=== PATIENT | male | born 1930 | race Caucasian/White ===

== ENCOUNTER 2016-10-26 10:20 | Outpatient (CLI) | payer MEDICARE, BC | END 2016-10-26 10:21 | disposition home or self-care (01) | DX: I10 Essential (primary) hypertension (principal); E78.5 Hyperlipidemia, unspecified; E11.9 Type 2 diabetes mellitus without complications; R53.83 Other fatigue; F03.90 Unspecified dementia, unspecified severity, without behavioral disturbance, psychotic disturbance, mood disturbance, and anxiety; R32 Unspecified urinary incontinence ==

== ENCOUNTER 2017-01-12 08:00 | Outpatient (CLI) | payer MEDICARE, BC | END 2017-01-12 23:59 | DX: E29.8 Other testicular dysfunction (principal) ==

== ENCOUNTER 2017-01-22 10:58 | Outpatient (CLI) | payer MEDICARE, BC | END 2017-01-22 10:59 | disposition home or self-care (01) | DX: M25.561 Pain in right knee (principal); M25.461 Effusion, right knee ==

== ENCOUNTER 2017-10-02 08:00 | Outpatient (CLI) | payer MEDICARE, BC | END 2017-10-02 08:01 | disposition home or self-care (01) | LOC: LAB.WCP 08:00 | PROVIDERS: ATTEND Family Medicine | DX: E29.8 Other testicular dysfunction (principal) | CPT/HCPCS: 36415; 84403 ==

== ENCOUNTER 2017-10-09 23:11 | Outpatient (CLI) | payer MEDICARE, BC | END 2017-10-09 23:12 | disposition EMS.NT | LOC: EMS 23:11 | PROVIDERS: ATTEND Surgery | DX: S00.81XA Abrasion of other part of head, initial encounter (principal); W18.39XA Other fall on same level, initial encounter; Y92.009 Unspecified place in unspecified non-institutional (private) residence as the place of occurrence of the external cause ==

== ENCOUNTER 2018-09-01 06:55 | Outpatient (CLI) | payer MEDICARE, BC | END 2018-09-01 06:56 | disposition EMS.NT | LOC: EMS 06:55 | PROVIDERS: ATTEND Surgery | DX: R53.1 Weakness (principal) ==

== ENCOUNTER 2018-09-29 11:35 | Outpatient (CLI) | payer MEDICARE, BC | END 2018-09-29 11:36 | disposition EMS.NT | LOC: EMS 11:35 | PROVIDERS: ATTEND Surgery | DX: Z03.89 Encounter for observation for other suspected diseases and conditions ruled out (principal) ==

== ENCOUNTER 2018-10-18 10:30 | Outpatient (CLI) | payer MEDICARE, BC | END 2018-10-18 10:31 | disposition home or self-care (01) | LOC: LAB.WCP 10:30 | PROVIDERS: ATTEND Family Medicine | DX: E29.1 Testicular hypofunction (principal) | CPT/HCPCS: 36415; 84403 ==

== ENCOUNTER 2018-11-25 08:49 | Outpatient (CLI) | payer MEDICARE, BC | END 2018-11-25 08:50 | disposition critical access hospital (66) | LOC: EMS 08:49 | PROVIDERS: ATTEND Surgery | DX: M25.552 Pain in left hip (principal); R26.2 Difficulty in walking, not elsewhere classified; R53.1 Weakness; M79.605 Pain in left leg; W19.XXXA Unspecified fall, initial encounter | CPT/HCPCS: A0425; A0429 ==

== ENCOUNTER 2018-11-25 09:07 | Emergency (ER) | payer MEDICARE, BC ==
--- NOTE | 2018-11-25 09:14 | ED Physician Documentation ---
History of Present Illness - Stated complaint Stated Complaint: HIP PAIN - History obtained from History obtained from: Patient, Family, EMS - Additonal information Additional information: Patient is an 88-year-old male presenting via ambulance with concern for left hip and left leg pain. History is obtained by EMS, , patient. Patient normally is only ambulatory with assistance of walker. EMS reports that they have been called to the house many times before to provide lift assist. and patient report the patient has had recurrent falls, most recently several days ago when he struck his left hip and left leg. Patient denies striking of head, loss of consciousness, or other injury. Patient also denies symptoms such as headache, vision changes, neck pain, back pain, rib pain, abdominal pain, respiratory issues, or other complaints. There are no particular improving factors to his symptoms, but movement seems to worsen them. Review of Systems Ten Systems: 10 systems reviewed and negative Musculoskeletal: reports: Extremity pain PD PAST MEDICAL HISTORY - Past Medical History Musculoskeletal: Osteoarthritis, Gout - Past Surgical History Cardiovascular: CABG - Present Medications Home Medications: Ambulatory Orders Medication Instructions Recorded Confirmed Ascorbate Calcium [Vitamin C] 500 mg PO DAILY 03/02/14 05/20/18 Atorvastatin Calcium [Lipitor] 40 mg PO DAILY 03/02/14 11/25/18 Cyanocobalamin (Vitamin B-12) 500 mcg PO DAILY 03/02/14 11/25/18 [Vitamin B-12] Multivitamin [Multivitamins] 1 each PO DAILY 03/02/14 11/25/18 RX: Allopurinol 300 mg PO DAILY 03/02/14 11/25/18 glipiZIDE [Glucotrol] 2.5 mg PO DAILY 03/02/14 11/25/18 raNITIdine [Zantac] 150 mg PO BID 03/02/14 11/25/18 Aspirin [Adult Low Dose Aspirin EC] 81 mg PO DAILY 02/22/15 11/25/18 RX: Escitalopram [Lexapro] 10 mg PO DAILY 02/28/16 11/25/18 RX: Testosterone Cypionate 200 mg IM Q14D 04/02/17 11/25/18 Cholecalciferol (Vitamin D3) 2,000 unit PO DAILY 05/21/17 11/25/18 [Vitamin D] RX: Donepezil HCl 10 mg PO DAILY 04/08/18 05/20/18 - Allergies Allergies/Adverse Reactions: Allergies Allergy/AdvReac Type Severity Reaction Status Date / Time prednisone Allergy Hallucinati Verified 11/25/18 11:11 ons narcotics AdvReac Hallucinati Uncoded 06/04/13 09:46 ons PD ED PE NORMAL - General General: No acute distress, Well developed/nourished - HEENT HEENT: Atraumatic, PERRL, EOMI, Moist mucous membranes, Dentition benign - Neck Neck: Supple, no meningeal sign, No bony TTP - Cardiac Cardiac: RRR, No murmur - Respiratory Respiratory: No respiratory distress, Clear bilaterally - Abdomen Abdomen: Soft, Non tender, Non distended, Other (Mild left hip pain) - Derm Derm: Normal color, Warm and dry, No rash, Other (No ecchymosis, abrasions, lacerations noted) - Extremities Extremities: No deformity, Other (No specific bony tenderness noted. No obvious change in range of motion from what appears to be patient's baseline.) - Neuro Neuro: No motor deficit, No sensory deficit (No gross motor or sensory deficits from patient's baseline noted) Results - Vitals Vitals: Vital Signs - 24 hr 11/25/18 11/25/18 11/25/18 09:06 09:14 11:45 Temperature 36.6 C 36.5 C Heart Rate 64 68 68 Respiratory 14 18 16 Rate Blood Pressure 111/59 L 115/62 115/64 O2 Saturation 98 92 100 11/25/18 13:15 Temperature Heart Rate 62 Respiratory 18 Rate Blood Pressure 115/75 O2 Saturation 96 Oxygen O2 Source Room air PD MEDICAL DECISION MAKING - ED course Complexity details: re-evaluated patient, considered differential, d/w patient, d/w family ED course: Patient arrives with complaint of left hip and leg pain after fall several days ago. Unfortunately, it appears that patient has limited mobility at baseline and often uses a walker, if not all the time and has had recurrent falls. Lower suspicion for intracranial injury, facial or head fractures, neck or back injury, rib fractures, intra-abdominal injury, but considered. We will plan to obtain chest x-ray to further evaluate for possible rib injury. Will focus more so on pelvis and left leg given patient's complaints and 's concerns. Patient was comfortable and did not require medications. Did not feel he required medical workup has have low suspicion for underlying pathology or sys temic illness and feel that his falls are related to his baseline mobility issues and otherwise mechanical.Symptoms all return unremarkable. Discussed results and recommendations with who requested additional information on assistance at home, physical therapy, exercises and social work consulted. Otherwise, provided strict return precautions, supportive care suggestions, and appropriate follow-up. voiced understanding and is comfortable with discharge plan. Departure - Departure Disposition: 01 Home, Self Care Clinical Impression: Fall Qualifiers: Encounter type: initial encounter Qualified Code(s): W19.XXXA - Unspecified fall, initial encounter Condition: Good Instructions: Falls Prevent Home Follow-Up: Layla Levi MD [Primary Care Provider] - Within 3 Days Comments: Please continue all home medications as previously instructed. Please have clotted use assistive devices such as walker. Recommend speaking with your primary care physician later today or tomorrow to discuss home health options, possible physical therapy, or other interventions to help at home. Please return to ED sooner if clot experiences another fall or has other complaints, as well as if you have any other concerns. Discharge Date/Time: 11/25/18 15:15
--- NOTE | 2018-11-25 10:45 | XRAY Report ---
Reason: fall from ground, left hip pain Procedure Date: 11/25/2018 Accession Number: [id number] / [id number] Procedure: XR - Hip w/Pelvis 2-3V LT CPT Code: FULL RESULT: EXAM: LEFT HIP RADIOGRAPHY EXAM DATE: 11/25/2018 10:13 AM. CLINICAL HISTORY: Fall from ground, left hip pain. COMPARISON: None. TECHNIQUE: 2 views. FINDINGS: Bones: No appreciable acute fracture. No bone lesion. Joints: Mild degenerative marginal osteophyte of the femoral heads commensurate with age. Mild degenerative changes of the SI joints and lower lumbar facets. Soft Tissues: Normal. No soft tissue swelling. IMPRESSION: No acute fracture appreciated. RADIA
--- NOTE | 2018-11-25 10:56 | XRAY Report ---
Reason: chest pain Procedure Date: 11/25/2018 Accession Number: [id number] / [id number] Procedure: XR - Chest 1 View X-Ray CPT Code: 09691 FULL RESULT: EXAM: CHEST RADIOGRAPHY EXAM DATE: 11/25/2018 10:13 AM. CLINICAL HISTORY: Chest pain. COMPARISON: None. TECHNIQUE: 1 view. FINDINGS: Lungs/Pleura: No focal opacities evident. No pleural effusion. No pneumothorax. Mediastinum: Within exam limitations, the cardiomediastinal contour is normal. Other: No appreciable displaced rib fractures. There is fracture of 1 of 7 median sternotomy wires. There are clips in the left upper quadrant from prior procedure. IMPRESSION: No radiographic evidence of acute cardiopulmonary disease. RADIA
--- NOTE | 2018-11-25 12:27 | XRAY Report ---
Reason: ground level fall Procedure Date: 11/25/2018 Accession Number: [id number] / [id number] Procedure: XR - Lumbar Spine 2 View CPT Code: FULL RESULT: EXAM: LUMBOSACRAL SPINE RADIOGRAPHY EXAM DATE: 11/25/2018 10:13 AM. CLINICAL HISTORY: Ground level fall. Low back pain. COMPARISONS: None. TECHNIQUE: 3 views. FINDINGS: Alignment: Normal. No spondylolisthesis or scoliosis. Bones: Five yeq-fkw-qyhaqcy lumbar vertebral bodies are present. No fractures or bone lesions. Disks: The disk heights are maintained. There is a large right anterolateral bridging osteophyte at L2-L3. Moderate to large anterior nonbridging osteophytes noted at L3-L4 and L4-L5. Facets: Bilateral facet arthrosis at L4-L5 and L5-S1. Sacroiliac Joints: Unremarkable. Soft Tissues: Normal. The visualized bowel gas pattern is normal. IMPRESSION: Degenerative disk changes commensurate with age. No appreciable acute fracture. RADIA
[2018-11-25 13:15] VITALS: BP 115/75
== END 2018-11-25 15:15 | disposition home or self-care (01) ==
LOC: ED 09:07
DX: M25.552 Pain in left hip (principal); M79.605 Pain in left leg; W19.XXXA Unspecified fall, initial encounter; Z91.81 History of falling
CPT/HCPCS: 71045; 72100; 99283

== ENCOUNTER 2018-11-26 09:58 | Outpatient (CLI) | payer MEDICARE, BC | END 2018-11-26 09:59 | disposition critical access hospital (66) | LOC: EMS 09:58 | PROVIDERS: ATTEND Surgery | DX: S79.912A Unspecified injury of left hip, initial encounter (principal); W18.30XA Fall on same level, unspecified, initial encounter; Y92.002 Bathroom of unspecified non-institutional (private) residence as the place of occurrence of the external cause | CPT/HCPCS: A0425; A0429 ==

== ENCOUNTER 2018-11-26 10:02 | Emergency (ER) | payer MEDICARE, BC ==
--- NOTE | 2018-11-26 10:23 | ED Physician Documentation ---
History of Present Illness - Stated complaint Stated Complaint: GLF - Chief complaint Chief Complaint: Trauma Ext - History obtained from History obtained from: Patient, Family - Additonal information Additional information: Patient is an 88-year-old male with history of coronary artery disease, osteoarthritis and is otherwise ambulatory with a walker presenting with his with request for further evaluation after being seen in this ED yesterday. Please refer to my previous note from yesterday dated 11/25/18 for further evaluation information and additional details. Briefly, patient has been experiencing recurrent falls and requiring EMS for lift assist regularly. and patient had reported a fall several days prior to yesterday's evaluation and were concerned with left hip and left femur pain. Plain films obtained of chest, pelvis, and lumbar spine, which returned unremarkable. Patient and had denied symptoms that would indicate new systemic illness or other complications including intracranial injury, other spinal injury, intra- abdominal injury, as well as other pathology such as pneumonia, cardiac disease, flu, etc. Patient's notes that he is still having difficulty with ambulation at this time, but no new injuries or other complaints since yesterday's visit. Review of Systems Constitutional: denies: Fever Eyes: denies: Reviewed and negative Ears: denies: Reviewed and negative Nose: denies: Reviewed and negative Throat: denies: Reviewed and negative Cardiac: denies: Chest pain / pressure Respiratory: denies: Dyspnea, Cough GI: denies: Abdominal Pain, Vomiting, Diarrhea : denies: Dysuria Musculoskeletal: reports: Extremity pain Neurologic: reports: Generalized weakness PD PAST MEDICAL HISTORY - Past Medical History Cardiovascular: IA Musculoskeletal: Osteoarthritis, Gout - Past Surgical History Cardiovascular: CABG - Present Medications Home Medications: Ambulatory Orders Medication Instructions Recorded Confirmed Allopurinol 300 mg PO DAILY 03/02/14 11/25/18 Ascorbate Calcium [Vitamin C] 500 mg PO DAILY 03/02/14 05/20/18 Atorvastatin Calcium [Lipitor] 40 mg PO DAILY 03/02/14 11/25/18 Cyanocobalamin (Vitamin B-12) 500 mcg PO DAILY 03/02/14 11/25/18 [Vitamin B-12] Multivitamin [Multivitamins] 1 each PO DAILY 03/02/14 11/25/18 glipiZIDE [Glucotrol] 2.5 mg PO DAILY 03/02/14 11/25/18 raNITIdine [Zantac] 150 mg PO BID 03/02/14 11/25/18 Aspirin [Adult Low Dose Aspirin EC] 81 mg PO DAILY 02/22/15 11/25/18 Escitalopram [Lexapro] 10 mg PO DAILY 02/28/16 11/25/18 Testosterone Cypionate 200 mg IM Q14D 04/02/17 11/25/18 Cholecalciferol (Vitamin D3) 2,000 unit PO DAILY 05/21/17 11/25/18 [Vitamin D] Donepezil HCl 10 mg PO DAILY 04/08/18 05/20/18 - Allergies Allergies/Adverse Reactions: Allergies Allergy/AdvReac Type Severity Reaction Status Date / Time amoxicillin [From Augmentin] Allergy Hallucinati Verified 11/26/18 10:25 ons azithromycin Allergy Hives Verified 11/26/18 10:25 clavulanic acid Allergy Hallucinati Verified 11/26/18 10:25 [From Augmentin] ons gentamicin Allergy Rash Verified 11/26/18 10:25 morphine Allergy Hallucinati Verified 11/26/18 10:25 ons prednisone Allergy Hallucinati Verified 11/26/18 10:21 ons narcotics AdvReac Hallucinati Uncoded 06/04/13 09:46 ons - Social History Does the pt smoke?: No Smoking Status: Never smoker Does the pt drink ETOH?: No Does the pt have substance abuse?: No - Immunizations Immunizations are current?: Yes PD ED PE NORMAL - General General: No acute distress, Well developed/nourished, Other (Patient is at baseline mentation and otherwise humerus, talkative, and interactive with exam. No acute distress resting comfortably in bed.) - HEENT HEENT: Atraumatic, PERRL, EOMI, Moist mucous membranes, Other (Gross visual acui ty intact. No nystagmus.) - Neck Neck: Supple, no meningeal sign, No bony TTP - Cardiac Cardiac: RRR, No murmur - Respiratory Respiratory: No respiratory distress, Clear bilaterally - Abdomen Abdomen: Normal bowel sounds, Soft, Non tender, Non distended - Derm Derm: Normal color, Warm and dry, No rash - Extremities Extremities: No deformity, No tenderness to palpate - Neuro Neuro: No motor deficit, No sensory deficit, Other (No gross motor or sensory deficits noted. At baseline mentation per ) - Psych Psych: Normal mood, Normal affect Results - Vitals Vitals: Vital Signs - 24 hr 11/26/18 11/26/18 10:12 13:07 Temperature 36.1 C L Heart Rate 63 62 Respiratory 16 19 Rate Blood Pressure 142/62 H 140/66 H O2 Saturation 97 97 Oxygen O2 Source Room air - EKG (time done) 1032 Rhythm: NSR Intervals: RBBB, LBBB Ischemia: Non specific changes - Labs Labs: Laboratory Tests 11/26/18 11/26/18 11/26/18 10:39 10:39 10:39 WBC 6.4 RBC 3.17 L Hgb 11.5 L Hct 34.0 L MCV 107.3 H MCH 36.4 H MCHC 33.9 RDW 16.2 H Plt Count 210 MPV 8.0 Neut # (Auto) 2.8 Lymph # (Auto) 2.2 [place] # (Auto) 0.9 Eos # (Auto) 0.5 Baso # (Auto) 0.0 Absolute Nucleated RBC 0.00 Nucleated RBC % 0.0 Sodium 138 Potassium 4.1 Chloride 107 Carbon Dioxide 26 Anion Gap 5.0 L BUN 30 H Creatinine 1.2 Estimated GFR (MDRD) 57 L Glucose 110 H Calcium 8.4 L Total Bilirubin 0.8 AST 43 H ALT 25 Alkaline Phosphatase 56 Troponin I < 0.04 Total Protein 6.7 Albumin 3.2 Globulin 3.5 Albumin/Globulin Ratio 0.9 L Lipase 40 Urine Color Urine Clarity Urine pH Ur Specific [place] Urine Protein Urine Glucose (UA) Urine Ketones Urine Occult Blood Urine Nitrite Urine Bilirubin Urine Urobilinogen Ur Leukocyte Esterase Ur Microscopic Review Urine Culture Comments Influenza A (Rapid) Influenza B (Rapid) 11/26/18 11/26/18 11:55 13:22 WBC RBC Hgb Hct MCV MCH MCHC RDW Plt Count MPV Neut # (Auto) Lymph # (Auto) [place] # (Auto) Eos # (Auto) Baso # (Auto) Absolute Nucleated RBC Nucleated RBC % Sodium Potassium Chloride Carbon Dioxide Anion Gap BUN Creatinine Estimated GFR (MDRD) Glucose Calcium Total Bilirubin AST ALT Alkaline Phosphatase Troponin I Total Protein Albumin Globulin Albumin/Globulin Ratio Lipase Urine Color YELLOW Urine Clarity CLEAR Urine pH 5.5 Ur Specific [place] 1.025 Urine Protein TRACE Urine Glucose (UA) NEGATIVE Urine Ketones NEGATIVE Urine Occult Blood NEGATIVE Urine Nitrite NEGATIVE Urine Bilirubin NEGATIVE Urine Urobilinogen 0.2 (NORMAL) Ur Leukocyte Esterase NEGATIVE Ur Microscopic Review NOT INDICATED Urine Culture Comments NOT INDICATED Influenza A (Rapid) Negative Influenza B (Rapid) Negative PD MEDICAL DECISION MAKING - ED course Complexity details: reviewed old records, reviewed results, re-evaluated patient, considered differential, d/w patient, d/w PMD ED course: Patient presenting with his with concern for difficulty with ambulation. Please refer to my note from yesterday dated 11/25/18 for further details. Overall, patient has been experiencing worsening ambulation and recurrent falls for some time with a recent fall several days ago for which she was evaluated yesterday with negative plain films. Patient and deny other injury since discharge or new symptoms that would indicate new IA, stroke, pneumonia, UTI, or other systemic illness, although considered. Patient's primary care physician instructed to bring patient to the emergency room for additional evaluation. At this time, do not find evidence of new trauma, neurological deficit, or infection on exam. Given primary care is concerned, offered further evaluation with blood work, urine testing, and pain scanning to , although have no targeted source at this time. agreeable. Primary care physician did later contact the ED and agreed with workup.All imaging returned unremarkable for new fracture or acute pathology. EKG and troponin negative. Screening lab work also do not show evidence of leukocytosis, significant anemia, major electrolyte abnormality or other concerns. Urinalysis also unremarkable. Influenza swab negative. Updated and patient. Social work consulted, who spoke with family, as well as primary care physician. Believe that plan is in place for long-term assistance or care. requesting discharge home. Departure - Departure Disposition: 01 Home, Self Care Clinical Impression: Decreased ambulation status Condition: Good Follow-Up: Layla Levi MD [Primary Care Provider] - Within 3 Days Comments: Please continue all home medications as previously instructed. Please follow-up with your primary care physician tomorrow and return to ED sooner if he experiences another fall, worsening symptoms, or have other concerns.
[2018-11-26 10:48] LABS: BASOPHILS % (AUTO) 0.7 %; EOSINOPHILS # (AUTO) 0.5 10^3/uL (0.0-0.7); EOSINOPHILS % (AUTO) 8.5 %; HGB - HEMOGLOBIN 11.5 g/dL (14.0-18.0); LYMPHOCYTES # (AUTO) 2.2 10^3/uL (1.5-3.5); LYMPHOCYTES % (AUTO) 34.1 %; MEAN CORPUSCULAR HEMOGLOBIN 36.4 pg (27.0-31.0); MEAN CORPUSCULAR HGB CONC 33.9 g/dL (32.0-36.0); MEAN CORPUSCULAR VOLUME 107.3 fL (80.0-94.0); MONOCYTES # (AUTO) 0.9 10^3/uL (0.0-1.0); NEUTROPHILS # (AUTO) 2.8 10^3/uL (1.5-6.6); NEUTROPHILS % (AUTO) 42.7 %; PLT - PLATELET COUNT 210 10^3/uL (130-450); RED BLOOD COUNT 3.17 10^6/uL (4.70-6.10); RED CELL DISTRIBUTION WIDTH 16.2 % (12.0-15.0); WHITE BLOOD COUNT 6.4 x10^3/uL (4.8-10.8)
[2018-11-26 11:00] LABS: ALBUMIN 3.2 g/dL (3.2-5.5); ALBUMIN/GLOBULIN RATIO 0.9 (1.0-2.2); BILIRUBIN,TOTAL 0.8 mg/dL (0.2-1.0); CALCIUM 8.4 mg/dL (8.5-10.3); CREATININE 1.2 mg/dL (0.6-1.2); TOTAL PROTEIN 6.7 g/dL (6.7-8.2)
--- NOTE | 2018-11-26 12:19 | CT Report ---
Reason: weak, difficulty walking Procedure Date: 11/26/2018 Accession Number: [id number] / [id number] Procedure: CT - HEAD WO CPT Code: FULL RESULT: EXAM: CT HEAD EXAM DATE: 11/26/2018 11:45 AM. CLINICAL HISTORY: Weak, difficulty walking. COMPARISON: None. TECHNIQUE: Multiaxial CT images were obtained from the foramen magnum to the vertex. Reformats: Sagittal and coronal. IV contrast: None. In accordance with CT protocol optimization, one or more of the following dose reduction techniques were utilized for this exam: automated exposure control, adjustment of mA and/or KV based on patient size, or use of iterative reconstructive technique. FINDINGS: Parenchyma: Parenchymal volume loss with periventricular regions of low attenuation. 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 No evidence of an acute vascular insult or acute parenchymal hemorrhage. No midline shift. No mass-effect. Extraaxial Spaces: Extra-axial spaces are prominent. No subdural or epidural collections identified. Ventricles: Ventricles are enlarged although slightly asymmetric with the right larger than the left. Sinuses and Orbits: Paranasal sinuses are clear. Trace mastoid effusions are present. Bones: No evidence of fracture or calvarial defect. Other: Changes are seen from bilateral lens surgery. Vascular calcifications are noted. IMPRESSION: 1. No acute intracranial abnormality is identified. 2. Parenchymal volume loss and chronic white matter changes. RADIA
--- NOTE | 2018-11-26 12:24 | CT Report ---
Reason: weak, difficulty walking Procedure Date: 11/26/2018 Accession Number: [id number] / [id number] Procedure: CT - LUMBAR SPINE WO CPT Code: FULL RESULT: EXAM: CT LUMBAR SPINE WITHOUT CONTRAST EXAM DATE: 11/26/2018 11:45 AM. CLINICAL HISTORY: Weak, difficulty walking. COMPARISONS: 11/25/2018. 08/08/2018. 11/26/2017. TECHNIQUE: Thin-section axial images were acquired of the lumbar spine from T12 to S1 without contrast. Post-processing: Coronal and sagittal reformats. Other: None. In accordance with CT protocol optimization, one or more of the following dose reduction techniques were utilized for this exam: automated exposure control, adjustment of mA and/or KV based on patient size, or use of iterative reconstructive technique. FINDINGS: Alignment: Slight levoscoliosis of the lower lumbar spine. No spondylolisthesis. Bones: Five meb-tfs-rywvdvz lumbar vertebral bodies are present. No acute fracture or bony lesion. Prominent degenerative osteophyte formation most extensively extending anteriorly at L2-L3. Disk Levels/Facets: T12-L1: Disk space narrowing. Osteophyte formation. Facet arthropathy. L1-L2: Disk space narrowing. Osteophyte formation. Mild circumferential disk protrusion. Facet arthropathy. L2-L3: Mild disk space narrowing. Osteophyte formation. Facet arthropathy. Circumferential disk protrusion. Mild to moderate central canal narrowing. L3-L4: Disk space narrowing. Osteophyte formation. Circumferential disk protrusion. Severe central canal narrowing. Facet arthropathy. Moderate bilateral neural foraminal narrowing. L4-L5: Disk space narrowing. Osteophyte formation. Severe central canal narrowing. Facet arthropathy. Mild to moderate bilateral neural foraminal narrowing. L5-S1: Disk space narrowing. Circumferential disk protrusion. Facet arthropathy. Mild bilateral neural foraminal narrowing. Musculature: Normal. No fatty atrophy. Other: Vascular calcifications. Mass-effect upon the IVC by the protuberant anterior osteophytes particularly at L2-L3 and L4-L5. Diverticuli are seen in the visualized colon distally. Mildly complex exophytic left renal low-attenuation lesion is seen measuring 20 mm with high density focus possibly a calcification. There are bilateral peripelvic cysts. IMPRESSION: 1. No acute lumbar spine abnormalities are identified. 2. Multilevel intervertebral disk degenerative changes of the lumbar spine. 3. Severe central canal narrowing at L3-L4 and L4-L5. 4. Exophytic 20 mm left renal low-attenuation lesion with a high density focus possibly a calcification similar in appearance compared to the CT from 11/26/2017. RADIA
--- NOTE | 2018-11-26 12:33 | CT Report ---
Reason: weak, difficulty walking Procedure Date: 11/26/2018 Accession Number: [id number] / [id number] Procedure: CT - THORACIC SPINE WO CPT Code: FULL RESULT: EXAM: CT THORACIC SPINE WITHOUT CONTRAST EXAM DATE: 11/26/2018 11:45 AM. CLINICAL HISTORY: Weak, difficulty walking. COMPARISONS: CHEST W/ 08/08/2018 11:[address] abdomen pelvis from 11/26/2017. TECHNIQUE: Thin-section axial images were acquired of the thoracic spine from C7 to L1 without contrast. Post-processing: Coronal and sagittal reformats. Other: None. In accordance with CT protocol optimization, one or more of the following dose reduction techniques were utilized for this exam: automated exposure control, adjustment of mA and/or KV based on patient size, or use of iterative reconstructive technique. FINDINGS: Alignment: Mild dextroscoliosis of the midthoracic spine. No spondylolisthesis. There are numerous bridging osteophytes. Bones: No fracture or bone lesion. Flowing bridging osteophytes are noted throughout the thoracic spine. Disk Levels/Facets: Multilevel mild disk space narrowing throughout the thoracic spine is seen large in the midthoracic spine although the intervertebral disk spaces are largely spared with extensive bridging osteophytes. 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 Thoracic facet arthropathy noted. Musculature: Normal. No fatty atrophy. Other: Linear bibasilar scar/atelectasis. Some motion limits detail of the visualized lung parenchyma. In the left upper lobe is a lobular nodule measuring 6 mm which may be partially seen compared to the chest CT from 08/08/2018 with an additional slightly more cephalad nodule measuring 6 mm also unchanged. No clear evidence for endobronchial obstruction. Heart size is unchanged. Coronary calcified and thoracic aortic calcified plaque. Visualized thyroid gland is unremarkable. Low-attenuation again seen in the medial right lobe of the liver. Medial exophytic 20 mm left renal lesion with a high density focus possibly calcification is unchanged. Partly visualized low-attenuation lesions in the right kidney the largest only visualized measuring 21 mm. Findings are unchanged. IMPRESSION: 1. No acute thoracic spine abnormalities are identified. 2. 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 3. Left lung nodules unchanged compared to the chest CT from 11/26/2017. RADIA
--- NOTE | 2018-11-26 12:39 | CT Report ---
Reason: weak, difficulty walking Procedure Date: 11/26/2018 Accession Number: [id number] / [id number] Procedure: CT - CERVICAL SPINE WO CPT Code: FULL RESULT: EXAM: CT CERVICAL SPINE WITHOUT CONTRAST DATE: 11/26/2018 11:45 AM. HISTORY: Weak, difficulty walking. COMPARISONS: CHEST W/ 08/08/2018 11:00 AM CHEST W/O 11/26/2017 2:37 PM. TECHNIQUE: Thin-section axial images were acquired of the cervical spine without contrast. Post-processing: Coronal and sagittal reformats. Other: None. In accordance with CT protocol optimization, one or more of the following dose reduction techniques were utilized for this exam: automated exposure control, adjustment of mA and/or KV based on patient size, or use of iterative reconstructive technique. FINDINGS: Alignment: Straightening of the normal cervical lordosis. Slight retrolisthesis of C4 on C5. Articular facets are normally aligned. Occipital condyles are normally aligned. Bones: Degenerative osteophyte formation. No acute fracture. No bony lesion. Interspace Levels/Facets: C1-C2: Degenerative changes of the anterior arch of C1 and the dens. C2-C3: Disk space narrowing. Osteophyte formation. Uncovertebral hypertrophy. Disk osteophyte complex. Facet arthropathy. Mild central canal narrowing. Mild right and severe left neural foraminal narrowing. C3-C4: Disk space narrowing. Osteophyte formation. Uncovertebral hypertrophy. Facet arthropathy. Severe right and moderate to severe left neural foraminal narrowing. C4-C5: Disk space narrowing. Osteophyte formation. Broad-based disk osteophyte complex. Facet arthropathy. Uncovertebral hypertrophy. Severe right and left neural foraminal narrowing. C5-C6: Disk space narrowing. Osteophyte formation. Uncovertebral hypertrophy. Broad-based disk osteophyte complex paired facet arthropathy. Mild central canal narrowing. Severe bilateral neural foraminal narrowing. C6-C7: Disk space narrowing. Osteophyte formation. Uncovertebral hypertrophy. Broad-based disk osteophyte complex. Mild to moderate central canal narrowing. Facet arthropathy. Severe bilateral neural foraminal narrowing. C7-T1: Mild disk space narrowing. Facet arthropathy. Musculature: Normal. No fatty atrophy. Other: The paravertebral and prevertebral soft tissues are unremarkable. Left apical lung nodule again seen measuring 4.5 mm, unchanged. Airways are clear. Vascular calcifications. No enlarged cervical lymph nodes. Skull base is unremarkable. IMPRESSION: 1. No acute cervical spine abnormalities identified. 2. Degenerative changes of the cervical spine. 3. Central canal narrowing at C5-C6 and C6-C7 greatest at C6-C7. 4. Left apical nodule measuring 4.5 mm without significant change compared to the chest CT from 11/26/2017. [facility]
[2018-11-26 13:28] LABS: BILIRUBIN,URINE NEGATIVE (NEGATIVE); GLUCOSE, URINE (UA) NEGATIVE (NEGATIVE); KETONES,URINE (UA) NEGATIVE (NEGATIVE); LEUKOCYTE ESTERASE, URINE NEGATIVE (NEGATIVE); NITRITE,URINE NEGATIVE (NEGATIVE); OCCULT BLOOD,URINE NEGATIVE (NEGATIVE); PH,URINE 5.5 PH (5.0-7.5); PROTEIN,URINE TRACE mg/dL (NEGATIVE); UROBILINOGEN,URINE 0.2 (NORMAL) E.U./dL (NORMAL)
[2018-11-26 13:29] LABS: CLARITY,URINE CLEAR (CLEAR)
[2018-11-26 17:07] VITALS: BP 133/71
== END 2018-11-26 17:10 | disposition home or self-care (01) ==
LOC: EDUNIT# → ED 10:02
DX: Z74.09 Other reduced mobility (principal); Z91.81 History of falling
CPT/HCPCS: 36415; 70450; 72125; 72128; 72131; 80053; 81001; 81003; 83690; 84484; 85025; 87086; 87275; 87276; 93005; 99283; 99284

== ENCOUNTER 2018-11-28 09:00 | Outpatient (CLI) | payer MEDICARE, BC ==
--- NOTE | 2018-11-28 21:40 | CONSULTATION NOTE ---
Palliative Care Consultation - Referral Referring Provider: Dr. Raina Levi Time of Visit: [id number] Referral setting: Home Referral Reason: Failure to thrive/acute left hip pain - Information Sources Records reviewed: Previous records reviewed History/Review of Systems obtained from: Patient, Family ( Daniela at visit) Exam limitations: Clinical condition (patient with moderate) - History of Present Illness Brief History of Present Illness: This is an 88-year-old gentleman I was asked to see urgently by his primary care provider, Dr. Levi. Patient had had an acute fall about 5 days ago, fell on his left side, and his pain had been progressively worsening. Went to the ED on 11/25, unfortunately x-rays did not show any signs or symptoms of acute fracture at that point in time. Patient returned home, but pain continued to acutely limit patient's ability to bear weight, be out of bed, or be attended to for ADLs. They returned back to the ED on 11/26, with further workup but only included CT scan of the lumbar spine that did show severe central canal narrowing at L3-L4 and L4-L5, and the thoracic CT scan was negative. Patient did not have a repeat x-ray nor scan of his hip. Unable to find any other underlying etiology for weakness or pain, was sent home with instruction to follow-up with primary care, and consider home PT. Patient was not able to bear weight, was sent home via ambulance. quite distraught over her experience, and patient has been bedbound since home. On examination, patient with minimal pain at rest, he is lying flat in bed. They have not been able to toilet him, he is using depends, and eating meals in bed. On examination, there is no bruising, nor acute skin traumatic injuries, has some bruising on left arm. Patient is unable though to lift left leg, bend without severe pain and crying out, nor on attempt to turn him on his side, able to tolerate pain as well. reports patient has some RLS, and was calling out in pain at night. Patient easily engaged, very hard of hearing, somewhat befuddled by his current situation. Patient denies nausea, has had not BM for 4 days, no GERD, nor shortness of breath. Attempted during time at home, to speak with radiologist at hospital, was not able to do this until return to the office about an hour later. Patient's general overall health, has been declining. Patient does have underlying dementia, most likely FAST 6 D, Patient with significant impulsivity and memory loss. Patient's falls are most often due to him walking away from the walker, patient has poor balance and overall generalized weakness. He has been ambulatory and functional though at baseline prior to this fall. He had been working with neurology to try some cognitive meds, most recently donepezil, without any improvement and experienced side effects. Patient does have known osteoarthritis, coronary artery disease with CABG, CLL originally diagnosed in 2007, was treated with Rituxan in 2014. 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 This treatment continued until he had recurrence in his right jaw, for which he received neutron therapy with good results. The goal had been to originally consider follow-up immunotherapy, patient scan on 07/2019 was negative so is currently on surveillance. Patient does have significant fatigue, because he can no longer comply with CPAP for JOSELYN, is not receiving. Has been receiving testotersone with hope to address underlying fatigue as levels were low, has not seen much improvement. Medical/Surgical History - Past Medical History Cardiovascular: reports: Coronary artery disease, [place] Respiratory: reports: Sleep apnea. 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 [place]. Patient was a [employer]. You have neighbors that have been very helpful particularly in her picking him up when he has had difficulty with falls. They have also used 911 lift assist. Concern at time of visit how patient was going to get his care needs met, they have financial stressors and limited income to be able to pay for placement or assistance. herself has a bad back, the patient's increased care needs are of significant concern. Family History - Family History Family History: Mother: , Father: Medications/Allergies - Medications Home Medications: Ambulatory Orders Medication Instructions Recorded Confirmed Allopurinol 300 mg PO DAILY 03/02/14 11/30/18 Ascorbate Calcium [Vitamin C] 500 mg PO DAILY 03/02/14 11/30/18 Atorvastatin Calcium [Lipitor] 40 mg PO DAILY 03/02/14 11/30/18 Cyanocobalamin (Vitamin B-12) 500 mcg PO DAILY 03/02/14 11/30/18 [Vitamin B-12] Multivitamin [Multivitamins] 1 each PO DAILY 03/02/14 11/30/18 glipiZIDE [Glucotrol] 2.5 mg PO DAILY 03/02/14 11/30/18 raNITIdine [Zantac] 150 mg PO BID 03/02/14 11/30/18 Aspirin [Adult Low Dose Aspirin EC] 81 mg PO DAILY 02/22/15 11/30/18 Escitalopram [Lexapro] 10 mg PO DAILY 02/28/16 11/30/18 Testosterone Cypionate 200 mg IM Q14D 04/02/17 11/30/18 Cholecalciferol (Vitamin D3) 2,000 unit PO DAILY 05/21/17 11/30/18 [Vitamin D] - Allergies Allergies/Adverse Reactions: Allergies Allergy/AdvReac Type Severity Reaction Status Date / Time amoxicillin [From Augmentin] Allergy Hallucinati Verified 11/26/18 10:25 ons azithromycin Allergy Hives Verified 11/26/18 10:25 clavulanic acid Allergy Hallucinati Verified 11/26/18 10:25 [From Augmentin] ons gentamicin Allergy Rash Verified 11/26/18 10:25 morphine Allergy Hallucinati Verified 11/26/18 10:25 ons prednisone Allergy Hallucinati Verified 11/26/18 10:21 ons narcotics AdvReac Hallucinati Uncoded 06/04/13 09:46 ons Review of Systems - Constitutional Constitutional: reports: Fatigue, Weight loss. denies: Fever, Chills - Eyes Eyes: reports: Vision loss - Ears, Nose & Throat Ears, Nose & Throat: reports: Hearing loss, Dry mouth - Gastrointestinal Gastrointestinal: reports: Constipation, Early satiety, Other (difficult to eat in bed; patient has had weight loss with dx of cancer was 225 1.5-2 years ago; now 165-170) - Genitourinary Genitourinary: reports: Incontinence (intermittent) - Musculoskeletal Musculoskeletal: reports: Back pain, Stiffness, Muscle weakness, Joint pain (left hip), Assistive devices (had previously been on walker), Transfer issues (now bed bound; unable to transfer at visit) - Integumentary Integumentary: reports: Dryness, Other (scars from surgery) - Neurological Neurological: reports: General weakness, Memory problems, Abnormal gait (balance issues) - Endocrine Endocrine: reports: Intolerance to cold - All Other Systems All Other Systems: reports: Other (limited ROS with STM deficits; providing most of information) Physical Exam - Vital Signs Temperature: 97.0 C Pulse Rate: 72 Respiratory Rate: 18 O2 Saturation: 92 (bedbound ra) Blood Pressure: 112/72 - Physical Exam General Appearance: positive: Moderate distress (related to pain/bedbound status) Eyes Bilateral: positive: Normal inspection ENT: positive: Dry mucous membranes Neck: positive: Other (scarring; right node disection). negative: Lymphadenopathy (R), Lymphadenopathy (L) Cardiovascular: positive: Regular rate & rhythm Respiratory: positive: No respiratory distress, Breath sounds nml, Diminished in bases Abdomen: positive: Non-tender, Soft, Nml bowel sounds Skin: positive: Dryness Extremities: positive: No pedal edema Neurologic/Psychiatric: positive: Mood/affect nml, Disoriented to time, Weakness Palliative Care - POLST Patient has POLST: No Pain: Pain worsening, Location (Left hip and groin area with movement or manipulation; radiating down to the knee and foot severe in description, minimal at rest.) Tiredness/Fatigue: Severe (7-10) (this has been worsening over last several months) Drowsiness/Sedation: Moderate (4-6) Nausea: None Depression: Mild (1-3) Anxiety: Mild (1-3) Anorexia: Moderate (4-6), Weight loss Sleep: Variable sleep pattern Constipation: Yes, Unmanaged Performance Status: Prior to patient's fall, patient was ambulatory with walker. Because of impulsivity would often leave it and fall. He has very poor balance this is not a new problem. Denies it is related to dizziness, does appear more related to weakness and peripheral neuropathy. does assist him, does need to Q him on a regular basis. His dementia has been worsening making his care needs more challenging. - Palliative Care Discussion: Unable to get hold of radiologist at time of visit to review x-ray and scans, did not have them with me for home visit. Unclear if they had re-looked at hip. In the context of the discussion, discussed because the acuity was worsening most likely would recommend That we consider returning to the ED, with significant hesitation as feels she had a negative experience. Did review options if patient were to stay at home, counseling regarding hospital bed, home health versus placement options. Did call [facility] for respite option, 250/night, was concerned would not be able to manage cost. Reviewed hiring help as his care currently is hard with bedbound status. She reports they do have a living will/advanced directives. Counseling provided regarding limitations of PT therapy intervention in this acute state. They do not have a POLST. Did introduce the form as patient has been having multiple interactions with EMS, reviewed with briefly, and included "hard choices for loving People". Discussed when past this acute phase, we could revisit goals of care and a dvanced care planning. Results - Lab Results Lab results reviewed: Yes Impression and Recommendations - Palliative Care Impression: This is an 88-year-old gentleman who has had an acute left hip injury, does present with symptoms consistent with fracture and follow-up with Dr. Arcadio Persaud, who read the original scans, there is no repeat scan or CT scan that includes the pelvis or hip. He recommended CT scan of the pelvis and left hip. After follow-up with and PCP Dr. Levi, 's preference was to have patient seen at [facility]. Instructed to call 911, report was called in. Patient does present overall as a failure to thrive, with increasing fatigue, weight loss, declining cognitive status, and functional decline. Palliative care will continue to follow after hospitalization. Recommendations/Counseling Done: 1. Acute left hip pain. Patient presents with symptoms of acute fracture, concern regarding displacement and escalating pain with recent fall. Counseling provided regarding recommendations and coordination of care with radiologist, primary care provider, and [facility] ED. Patient to be transported via 911 to [place] per 's request. 2. Advanced care planning. Considering home management of patient and bedbound status, counseling provided regarding obtaining medical equipment/hospital bed, placement versus hiring help, and resources in community for caregiving support. Also introduced [facility] [address], as well as palliative care consult service support. Plan to follow after patient's discharge from hospital/SNF. ADDENDUM: Patient was admitted to [facility], communicated patient was to receive orthopedic surgery "nail", CT scan of the pelvis did show minimally displaced left intertrochanteric femoral fracture, as well as soft tissue edema within the posterior perineum and gluteal region. He also had a finding of diffuse thickened bladder wall which could be secondary to incomplete distention or cystitis. Time Spent: 35 minutes with greater than 50% of this done in evaluation of patient, counseling regarding benefits of burdens of returning to ED versus home management, provided coordination of care with PCP and [facility] as well a s follow-up with radiologist.
== END 2018-11-28 09:01 | disposition home or self-care (01) ==
LOC: PC 09:00
PROVIDERS: ATTEND Nurse Practitioner Adult Health
DX: Z51.5 Encounter for palliative care (principal); G89.11 Acute pain due to trauma; M25.552 Pain in left hip; R62.7 Adult failure to thrive; G25.81 Restless legs syndrome; H91.90 Unspecified hearing loss, unspecified ear; F03.90 Unspecified dementia, unspecified severity, without behavioral disturbance, psychotic disturbance, mood disturbance, and anxiety; C91.10 Chronic lymphocytic leukemia of B-cell type not having achieved remission; G47.33 Obstructive sleep apnea (adult) (pediatric); Z74.01 Bed confinement status; Z91.81 History of falling; Z59.6 Low income; Z79.899 Other long term (current) drug therapy
CPT/HCPCS: 99345

== ENCOUNTER 2018-11-28 12:10 | Outpatient (CLI) | payer MEDICARE, BC | END 2018-11-28 12:11 | disposition EMS.NT | LOC: EMS 12:10 | PROVIDERS: ATTEND Surgery | DX: M25.552 Pain in left hip (principal); Z91.81 History of falling; R26.2 Difficulty in walking, not elsewhere classified ==

== ENCOUNTER 2019-01-02 15:25 | Outpatient (CLI) | payer MEDICARE, BC ==
--- NOTE | 2019-01-03 02:29 | XRAY Report ---
Reason: FOOT PAIN,LEFT Procedure Date: 01/02/2019 Accession Number: [id number] / [id number] Procedure: WCP - Foot 3 View LT CPT Code: FULL RESULT: EXAM: LEFT FOOT RADIOGRAPHY EXAM DATE: 01/02/2019 03:40 PM. CLINICAL HISTORY: FOOT PAIN,LEFT. COMPARISON: None. TECHNIQUE: 3 views. FINDINGS: Bones: Normal. No fractures or bone lesions. Joints: Mild osteoarthritis. Soft Tissues: Normal. No soft tissue swelling. IMPRESSION: Mild osteoarthritis. No evidence of acute fracture. [facility]
== END 2019-01-02 15:26 | disposition home or self-care (01) ==
LOC: DI.WCP 15:25
PROVIDERS: ATTEND Family Medicine
DX: M19.072 Primary osteoarthritis, left ankle and foot (principal)

== ENCOUNTER 2019-01-13 18:26 | Outpatient (CLI) | payer MEDICARE, BC | END 2019-01-13 18:27 | disposition short-term general hospital (02) | LOC: EMS 18:26 | PROVIDERS: ATTEND Surgery | DX: T17.928A Food in respiratory tract, part unspecified causing other injury, initial encounter (principal) | CPT/HCPCS: A0425; A0429 ==

== ENCOUNTER 2019-01-14 13:45 | Outpatient (CLI) | payer MEDICARE, BC ==
--- NOTE | 2019-01-14 19:51 | CONSULTATION NOTE ---
Palliative Care Follow Up - Referral Referring Provider: Dr. Raina Levi Time of Visit: [id number] Referral setting: Home Referral Reason: Dementia/[place] Cell Carcinoma/Goals of Care - Information Sources Records reviewed: Previous records reviewed History/Review of Systems obtained from: Patient, Family ( Daniela) Exam limitations: Clinical condition (patient with dementia) - History of Present Illness Update Brief HPI Update: This is an 88-year-old gentleman, most recently he had had a fall, with a delay in diagnosis for left hip fracture. Patient originally seen by myself on 11/28/2018 and sent into [facility]. Did receive at that point in time surgery for a minimally displaced left intertrochanteric femoral fracture with "nail". Patient then was discharged to [facility] a SNF for 25 days. Has been home for a couple weeks, with support from [facility], though this is been somewhat stressful for them with the multiple appointments and planning. Patient does have underlying dementia, this is been exacerbated with his recent surgery, he is more impulsive, difficulty with cueing, needs [id number] direction. Patient is able to participate in conversation, but has poor short- term memory, and poor problem solving. His care needs have escalated dramatically, and 's distress was on discharge from [facility] told that he needed 24/7 supervision. Secure affordable help, for respite and to be able for herself to receive ongoing rehab therapy and leave the home without him. He presents is easily engaged, no insight to his current condition, poor memory and no recall of current events. also reports he "shuffles his food", and this had led to choking episode at a restaurant yesterday. 911 was called, and he had a ED visit at [facility]. Concern for aspiration, had x-ray but it was negative. This was quite traumatic for the . Patient is also had obsessive behaviors which are new, and up frequently to void, UTI and other symptoms have been ruled out as far as retention. Just yesterday, with no additional medications. Patient also difficulty with sleeping, has had weight loss, and cognitive decline. Patient also presented few days ago with a nodule on the right side of his neck. This was of concern, saw PCP, and put on some cephalaxin Sunday, for probable cellulitis. This is not improved though, in fact area is enlarging presents today with mass feeling in above clavicle, denies pain or discomfort with this. 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 Photos taken, to upload to oncologist at [facility]. Notified Dr. Levi of concerns. Patient was scheduled already to have scans on Sunday, for staging. Patient's history significant for diabetes type 2, CLL diagnosed in August 2015 with Rituxan treatments through 2015, history of hepatitis, quadruple bypass, right knee repair, left knee replaced. 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 [place] cell carcinoma 2017 forehead, with surgery and flap, neutron radiation to right cheek, right eyebrow, Keytruda immunotherapy, neutron radiation right chin and jaw June 2018. Fractured left hip with nails and screws inserted December 2018. Social History - Living Situation Living arrangement: At home Living Situation: With spouse/s.o. Support System: primary caregiver, patient is pretty much estranged from his children. She has minimal support, finances are of acute distress. She does have the [facility] forms as far as application for respite care. Has been working with [employer], also provided information regarding senior services to help with [place] application and [employer]. Was to be receiving home health aide to [facility], this is not been possible secondary to poor staffing on their part. She is feeling quite overwhelmed, patient's care needs have escalated dramatically, and patient's health is declining. 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 [place]. Medications/Allergies - Medications Home Medications: Ambulatory Orders Medication Instructions Recorded Confirmed Allopurinol 300 mg PO DAILY 03/02/14 01/15/19 Ascorbate Calcium [Vitamin C] 500 mg PO DAILY 03/02/14 01/15/19 Atorvastatin Calcium [Lipitor] 40 mg PO DAILY 03/02/14 01/15/19 Cyanocobalamin (Vitamin B-12) 500 mcg PO DAILY 03/02/14 01/15/19 [Vitamin B-12] Multivitamin [Multivitamins] 1 each PO DAILY 03/02/14 01/15/19 glipiZIDE [Glucotrol] 2.5 mg PO DAILY 03/02/14 01/15/19 raNITIdine [Zantac] 150 mg PO BID 03/02/14 01/15/19 Aspirin [Adult Low Dose Aspirin EC] 81 mg PO DAILY 02/22/15 01/15/19 Escitalopram [Lexapro] 10 mg PO DAILY 02/28/16 01/15/19 Cholecalciferol (Vitamin D3) 2,000 unit PO DAILY 05/21/17 01/15/19 [Vitamin D] cephALEXin [Cephalexin] 500 mg PO QID MDD 10 days 01/15/19 01/15/19 - Allergies Allergies/Adverse Reactions: Allergies Allergy/AdvReac Type Severity Reaction Status Date / Time amoxicillin [From Augmentin] Allergy Hallucinati Verified 11/26/18 10:25 ons azithromycin Allergy Hives Verified 11/26/18 10:25 clavulanic acid Allergy Hallucinati Verified 11/26/18 10:25 [From Augmentin] ons gentamicin Allergy Rash Verified 11/26/18 10:25 morphine Allergy Hallucinati Verified 11/26/18 10:25 ons prednisone Allergy Hallucinati Verified 11/26/18 10:21 ons narcotics AdvReac Hallucinati Uncoded 06/04/13 09:46 ons Review of Systems - Constitutional Constitutional: reports: Fatigue, Weight loss (160 estimated). denies: Fever, Chills - Ears, Nose & Throat Ears, Nose & Throat: reports: Hearing loss, Hearing aids, Dry mouth - Cardiovascular Cardiovascular: reports: Decr. exercise tolerance - Respiratory Respiratory: reports: Cough. denies: SOB at rest, SOB with exertion - Gastrointestinal Gastrointestinal: reports: Good appetite. denies: Constipation, Nausea - Genitourinary Genitourinary: reports: Frequency, Urgency, Incontinence - Musculoskeletal Musculoskeletal: reports: Muscle aches, Stiffness, Limited range of motion, Muscle weakness, Assistive devices (uses walker) - Integumentary Integumentary: reports: Dryness, Other (had nodule/dx with cellulitis tx of AB not helped; area worsened large increasing swelling; no pain) - Neurological Neurological: reports: General weakness, Memory problems (poor STM; unable to recall events), Abnormal gait - Psychiatric Psychiatric: reports: Depression, Anxiety, Behavior disturbances (impulsive; "shoveling of food"; perseverative with frequent toileting) - All Other Systems All Other Systems: reports: Other (limited ROS) Physical Exam - Vital Signs Temperature: 96.5 C Pulse Rate: 68 Respiratory Rate: 18 O2 Saturation: 94 (ra @ rest) Blood Pressure: 112/68 - Physical Exam General Appearance: positive: No acute distress Eyes Bilateral: positive: Normal inspection ENT: positive: No signs of dehydration Neck: positive: No JVD, Trachea midline, Other (area expanded 2 x 3 inches with swelling/mass; expand area of redness/no erythemia; "nodule" has grown over this last week; suspect recurrent [place] cell) Cardiovascular: positive: Regular rate & rhythm Respiratory: positive: No respiratory distress, Breath sounds nml, Diminished in bases. negative: Wheezes, Rales, Rhonchi Abdomen: positive: Non-tender, Soft, Nml bowel sounds Skin: positive: Pallor, Other (1 cm area of suspected recurrence of squamous cell on forehead) Extremities: positive: No pedal edema Neurologic/Psychiatric: positive: Mood/affect nml, Disoriented to time, Weakness, Flat affect Palliative Care - POLST Patient has POLST: Yes POLST Status: DNR, Selective Treatment (completed at visit) Pain: No pain Tiredness/Fatigue: Moderate (4-6) Drowsiness/Sedation: Comment (sleeps most of the day) Constipation: No Performance Status: Patient is ambulatory with walker, though does walk without it if not cued. Patient's balance has improved with therapy, unable to use rolling walker as cognitively not safe. Patient does need assistance from sit to stand, this is both strength and cueing. Patient is working with speech therapy, OT, and PT through home health. - Palliative Care Discussion: Initial conversation had with , patient sleeping on arrival. She is quite overwhelmed, needing increased assistance, has multiple forms including from [facility]. Was told by [facility] if patient on hospice, can be fast tracked counseling provided regarding hospice, both prognosis and goals of care, this at this point in time is an unknown factor. Patient's dementia has worsened, increased care needs, and cueing. Patient high risk for recurrent falls. She was quite traumatized by choking episode and visit to ED yesterday. We discussed at length the POLST, given patient's declining health, appropriateness for DNA R and in alignment with previous healthcare directives completed by patient in 2007 when he was more cognizant. Counseling provided regarding weighing benefits and burdens of treatments, healthcare decisions as they arise, and the threshold and goals for transitioning to hospice. Patient participated in second part of conversation, discussed in the context of what is important to him, patient does want to have a at home, has not had any experience with hospice but provided information regarding this in the context of goals. reports patient when he was in SNF, repeatedly asked to go home. POLST was completed DNA R/selective treatments. This is cosigned by . Patient does present with decision-making capacity in the context of being able to communicate his goals, and values. cosigned in the context of medical decision making and weighing benefits and burdens and implications of decisions.Copy will be provided to Dr. Allen, put in [place] M, she will get this to [facility] as well as take to the oncology appointment. She does have DPO a with as primary. is recently changed hers to have her son be her DPOAE given patient's dementia. Impression and Recommendations - Palliative Care Impression: This is an 88-year-old gentleman who has most recently left hip fracture, with extended SNF stay. Dementia worsening, with increased need of cueing, increased impulsivity, decline in functional status, and more difficulty with short-term memory issues. 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 Patient due to have restaging scans this Sunday. Patient presents with low symptom burden, mostly of fatigue, but increasing caregiver distress. Palliative care addressing goals of care, and anticipatory guidance. Recommendations/Counseling Done: 1. 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 Mass in right neck/clavicle area highly suspicious for recurrent disease. Patient due to have scheduled restaging scans this Sunday anyway. Assisted with taking photos, she will send to oncologist at [facility] for review, reinforced to my concerns. She will do this is afternoon. 2. Choking episode 5/. Patient did have follow-up at ED for aspiration concerns. Patient's lungs are clear today, patient currently on cephalexin for right neck "cellulitis". Discussed at length need for aspiration precautions, patient does do some shoveling. They are working with speech therapy. She is cutting up his food more fine and supervising his eating. 3. Dementia. Patient does present with exacerbation of dementia and cognitive decline. Patient care needs have escalated as a result, is working with rehab HH services of [facility], to maximize functional status and safety. Has increased caregiver distress, does appear quite overwhelmed. 3. Status post hip fracture. Patient is ambulatory, remains at high risk for sequela of recurrent falls. 4. Advanced care planning. Did assist with filling out [facility] forms for accessing care. Counseling provided regarding the continuum of care including home health, halfway care and hospice care. Counseling provided regarding goals of care, completed POLST has DNA R/selective treatments. Patient included regarding values and wishes for end-of-life care. We will continue to provide support as awaiting outcome regarding patient's [place] cell carcinoma. Time Spent: 90 minutes with greater than 50% of this done in review of goals of care, advanced care planning, assisting with the [facility] forms and anticipatory guidance. Coordination of care follow-up with PCP Dr. Allen regarding concerns of enlarging mass, instructed and follow-up with [facility], instructed may have them call if needs assistance with coordination of care.
== END 2019-01-14 13:46 | disposition home or self-care (01) ==
LOC: PC 13:45
PROVIDERS: ATTEND Nurse Practitioner Adult Health
DX: Z51.5 Encounter for palliative care (principal); C4A.9 Merkel cell carcinoma, unspecified; R09.89 Other specified symptoms and signs involving the circulatory and respiratory systems; F03.91 Unspecified dementia, unspecified severity, with behavioral disturbance; R62.7 Adult failure to thrive; S72.002D Fracture of unspecified part of neck of left femur, subsequent encounter for closed fracture with routine healing; R63.4 Abnormal weight loss; Z91.81 History of falling; E11.9 Type 2 diabetes mellitus without complications; F32.9 Major depressive disorder, single episode, unspecified; F41.9 Anxiety disorder, unspecified; H91.90 Unspecified hearing loss, unspecified ear; R35.0 Frequency of micturition; R39.15 Urgency of urination; R32 Unspecified urinary incontinence; Z66 Do not resuscitate; Z79.84 Long term (current) use of oral hypoglycemic drugs; Z79.82 Long term (current) use of aspirin; Z95.1 Presence of aortocoronary bypass graft; Z96.652 Presence of left artificial knee joint; Z85.820 Personal history of malignant melanoma of skin; Z85.828 Personal history of other malignant neoplasm of skin; Z92.3 Personal history of irradiation; Z92.21 Personal history of antineoplastic chemotherapy
CPT/HCPCS: 99350

== ENCOUNTER 2019-01-17 09:30 | Outpatient (CLI) | payer MEDICARE, BC ==
[2019-01-17] MEDS ORDERED: IOVERSOL 320 50 ML VIAL ONE (09:57)
[2019-01-17] MEDS ORDERED: IOVERSOL 320 100 ML VIAL IVP ONE ×2 (09:57→11:19)
[2019-01-17 10:01] LABS: CREATININE 1.4 mg/dL (0.6-1.2)
[2019-01-17] MEDS ORDERED: IOVERSOL 320 50 ML VIAL PO ONE (11:19)
--- NOTE | 2019-01-17 12:04 | CT Report ---
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 CLINICAL HISTORY: [place] cell carcinoma of unspecified part of face. COMPARISONS: CHEST W/ 08/08/2018 11:00 AM. TECHNIQUE: Routine helical CT imaging was performed through the chest. IV contrast: None. Reconstructions: Coronal and sagittal. In accordance with CT protocol optimization, one or more of the following dose reduction techniques were utilized for this exam: automated exposure control, adjustment of mA and/or KV based on patient size, or use of iterative reconstructive technique. FINDINGS: Lung evaluation is again limited by motion. Lungs/Pleura: Multiple bilateral pulmonary nodules are stable, for example 6 mm nodule in the left lower lobe on image 31 series 3, 4 mm nodule in the right lower lobe on image 29 just above the diaphragm. Again seen is extensive bilateral ground glass opacity in the basilar predominant distribution. There is no new lobar consolidation, and there are no new suspicious nodules. No pleural effusion or pneumothorax. Mediastinum: The patient is status post median sternotomy with CABG. The main pulmonary artery is mildly enlarged, 3.1 cm. There is severe three-vessel coronary artery calcifications. There is no mediastinal or hilar lymphadenopathy. Bones: There are no aggressive osseous lesions. Visualized Abdomen: See separate report. Other: None. IMPRESSION: Within limitations of the exam, pulmonary nodules are stable. Persistent bilateral groundglass appearance of the lungs. Mild enlargement of the pulmonary artery, sometimes associated with pulmonary hypertension. RADIA
--- NOTE | 2019-01-17 13:07 | CT Report ---
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 CLINICAL HISTORY: [place] cell carcinoma of unspecified part of face. COMPARISONS: ABDOMEN/PELVIS W/ 08/08/2018 11:00 AM ABDOMEN/PELVIS W/O 11/26/2017 2:37 PM. TECHNIQUE: Routine helical CT imaging was performed through the abdomen and pelvis. IV contrast: OPTI 320 90 ML. Enteric contrast: Yes. Reconstructions: Coronal and sagittal. In accordance with CT protocol optimization, one or more of the following dose reduction techniques were utilized for this exam: automated exposure control, adjustment of mA and/or KV based on patient size, or use of iterative reconstructive technique. FINDINGS: Lung Bases: See separate report. Liver: Stable central hepatic hypodensity which is too small to characterize, image 21 series 3. No suspicious lesion. Gallbladder/Bile Ducts: Cholelithiasis. Spleen: Normal. Pancreas: Within normal limits. Adrenal Glands: Normal. Kidneys: Bilateral renal cysts as well as lesions which are too small to characterize. Additionally, posteriorly along the left renal midpole is a 2.3 x 1.8 cm hypodense lesion which contains internal calcifications and does not meet criteria for simple cyst, when compared to previous noncontrast CT this likely does not demonstrate enhancement and a complex cyst is favored. No urinary obstruction. Peritoneal Cavity/Bowel: Extensive diverticulosis without diverticulitis is redemonstrated. No bowel obstruction, free air or free fluid. No lymphadenopathy. Pelvic Organs: No suspicious mass or adenopathy. Vasculature: Mild atherosclerosis without abdominal aortic aneurysm. Bones: No aggressive osseous lesions are detected. Other: None. IMPRESSION: No evidence of metastatic disease to the abdomen and pelvis. RADIA
--- NOTE | 2019-01-18 19:48 | CT Report ---
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 EXAM DATE: 01/17/2019 11:16 AM. HISTORY: [place] cell carcinoma of unspecified part of face. COMPARISONS: CT neck soft tissue with contrast 08/08/2018. TECHNIQUE: Routine soft tissue neck CT protocol. Reconstructions: Coronal and sagittal. IV contrast: 90 cc Optiray 320. In accordance with CT protocol optimization, one or more of the following dose reduction techniques were utilized for this exam: automated exposure control, adjustment of mA and/or KV based on patient size, or use of iterative reconstructive technique. FINDINGS: Visualized Intracranial Contents: Unremarkable. Orbits: Unremarkable. Note is made of bilateral lens removal. Sinuses: Visualized paranasal sinuses and mastoid air cells are clear. Oral cavity: The visualized oral cavity is unremarkable. The floor of the mouth is symmetric. Pharynx: Pharyngeal mucosa is unremarkable. The infratemporal fossa, parapharyngeal spaces, and retropharyngeal space are unremarkable. The base of the tongue is symmetric and unremarkable. The airway is patent. Larynx: Larynx and supraglottic airway are patent without mass lesion. Vocal cords are symmetric. The visualized trachea is unremarkable. Parotid and Submandibular Glands: Symmetric and unremarkable. Lymph Nodes: No enlarged lymph nodes are identified in the cervical, supraclavicular, and visualized superior mediastinal regions. Soft Tissues: There is interval development of diffuse dermal soft tissue thickening seen anteriorly in the lower neck. This extends into the right lateral mid neck region. This is superficial to the larynx and strap muscles. This is superficial to the sternocleidomastoid muscle bilaterally, greater on the right. Skin thickening measures up to 7 mm. The deep muscle and fascial planes are unremarkable. Vascular Structures: Atherosclerotic vascular change is seen involving the aortic arch and great vessels off the arch. Moderate, 50%, stenosis is seen in the vertical segment of the left subclavian artery. There likely is severe stenosis at the origin and proximal vertebral arteries bilaterally. Vertebral arteries are patent. Moderate atherosclerotic intimal thickening and calcification is seen at the CCA bifurcation and proximal ICA, greater on the right. Moderate, 50%, stenosis is seen at the origin of the ICA. Thyroid Gland: Normal. Lung: The visualized lung apices are clear. Bones: No evidence of acute fracture or malalignment. Mild to moderate cervical spondylosis is noted. Mild bridging right anterolateral osteophytes are seen in the upper thoracic spine. Other: None. IMPRESSION: 1. Development of dermal thickening seen anteriorly throughout the lower neck. This is centered in the midline and extends greater to the right of midline as outlined above. Correlation for site of skin cancer (Nicole cell carcinoma) would be of value. 2. No abnormal cervical lymphadenopathy appreciated. RADIA
== END 2019-01-17 09:31 | disposition home or self-care (01) ==
LOC: LAB 09:30 → DI 09:31
PROVIDERS: ATTEND Dermatology
DX: C4A.30 Merkel cell carcinoma of unspecified part of face (principal); C7B.1 Secondary Merkel cell carcinoma; C7A.1 Malignant poorly differentiated neuroendocrine tumors; C91.10 Chronic lymphocytic leukemia of B-cell type not having achieved remission; R91.8 Other nonspecific abnormal finding of lung field; I28.9 Disease of pulmonary vessels, unspecified
CPT/HCPCS: 36415; 70491; 71260; 74177; 82565; Q9967

== ENCOUNTER 2019-03-03 19:01 | Outpatient (CLI) | payer MEDICARE, BC ==
[2019-03-03 19:33] LABS: ALBUMIN 2.7 g/dL (3.2-5.5); ALBUMIN/GLOBULIN RATIO 0.8 (1.0-2.2); BILIRUBIN,TOTAL 0.4 mg/dL (0.2-1.0); CALCIUM 8.3 mg/dL (8.5-10.3); CREATININE 1.2 mg/dL (0.6-1.2); TOTAL PROTEIN 6.2 g/dL (6.7-8.2)
== END 2019-03-03 19:02 | disposition home or self-care (01) ==
LOC: LAB 19:01
PROVIDERS: ATTEND Family Medicine
DX: E11.29 Type 2 diabetes mellitus with other diabetic kidney complication (principal); I10 Essential (primary) hypertension
CPT/HCPCS: 36415; 80053

== ENCOUNTER 2019-03-05 09:49 | Outpatient (CLI) | payer MEDICARE, BC | END 2019-03-05 09:50 | disposition critical access hospital (66) | LOC: EMS 09:49 | PROVIDERS: ATTEND Surgery | DX: R53.1 Weakness (principal); R47.9 Unspecified speech disturbances ==

== ENCOUNTER 2019-03-05 09:56 | Emergency (ER) | payer MEDICARE, BC ==
--- NOTE | 2019-03-05 10:39 | ED Physician Documentation ---
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 He had been lightheaded, complaining of dizziness, prior to the episode. His helped him into the bathroom where he went completely limp and leaned into the towel rack. She was able to ease him to the floor where he was initially unresponsive. By the time she called 911 and came back to him he was able to respond to her. When medics arrived the patient was initially responsive, but had a recurrent episode that was brief. The patient denies any pain at this time. He has had no recent vomiting or diarrhea. He denies headache, chest pain, or dysuria. He was discharged from 4 days ago after 5-day hospitalization with viral gastroenteritis. He is 3 weeks status post neutron radiation for right neck cancer. He is 3 months status post ORIF of the hip fracture, and uses a walker to assist with ambulation. He has a past history of leukemia. 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 Review of Systems Constitutional: reports: Fatigue, Other (dizziness). denies: Fever Eyes: denies: Decreased vision Ears: denies: Tinnitus/ringing Nose: denies: Congestion Throat: denies: Sore throat Cardiac: denies: Chest pain / pressure, Palpitations Respiratory: denies: Dyspnea, Cough GI: denies: Abdominal Pain, Nausea, Vomiting : denies: Dysuria Skin: reports: Lesions (Facial lesions consistent with recurrent cancer.). denies: Rash Musculoskeletal: denies: Back pain, Extremity pain Neurologic: reports: Syncope. denies: Focal weakness, Numbness, Seizure, Headache, Head injury PD PAST MEDICAL HISTORY - Past Medical History Cardiovascular: MD Neuro: Dementia Musculoskeletal: Osteoarthritis, Gout Other Past Medical History: Neck Cancer - Past Surgical History Past Surgical History: Yes Cardiovascular: CABG - Present Medications Home Medications: Ambulatory Orders Medication Instructions Recorded Confirmed Allopurinol 300 mg PO DAILY 03/02/14 01/15/19 Ascorbate Calcium [Vitamin C] 500 mg PO DAILY 03/02/14 01/15/19 Atorvastatin Calcium [Lipitor] 40 mg PO DAILY 03/02/14 01/15/19 Cyanocobalamin (Vitamin B-12) 500 mcg PO DAILY 03/02/14 01/15/19 [Vitamin B-12] Multivitamin [Multivitamins] 1 each PO DAILY 03/02/14 01/15/19 glipiZIDE [Glucotrol] 2.5 mg PO DAILY 03/02/14 01/15/19 raNITIdine [Zantac] 150 mg PO BID 03/02/14 01/15/19 Aspirin [Adult Low Dose Aspirin EC] 81 mg PO DAILY 02/22/15 01/15/19 Escitalopram [Lexapro] 10 mg PO DAILY 02/28/16 01/15/19 Cholecalciferol (Vitamin D3) 2,000 unit PO DAILY 05/21/17 01/15/19 [Vitamin D] cephALEXin [Cephalexin] 500 mg PO QID MDD 10 days 01/15/19 01/15/19 - Allergies Allergies/Adverse Reactions: Allergies Allergy/AdvReac Type Severity Reaction Status Date / Time amoxicillin [From Augmentin] Allergy Hallucinati Verified 03/05/19 10:06 ons azithromycin Allergy Hives Verified 03/05/19 10:06 clavulanic acid Allergy Hallucinati Verified 03/05/19 10:06 [From Augmentin] ons gentamicin Allergy Rash Verified 03/05/19 10:06 morphine Allergy Hallucinati Verified 03/05/19 10:06 ons prednisone Allergy Hallucinati Verified 03/05/19 10:06 ons narcotics AdvReac Hallucinati Uncoded 03/05/19 10:06 ons - Living Situation Living Situation: reports: With spouse/s.o. Living Arrangement: reports: At home - Social History Does the pt smoke?: No Smoking Status: Never smoker Does the pt drink ETOH?: No Does the pt have substance abuse?: No - Immunizations Immunizations are current?: Yes - POLST Patient has POLST: Yes PD ED PE NORMAL - Vitals Vital signs reviewed: Yes (normal) - General General: Other (Alert, elderly, frail-appearing male who is hard of hearing and mildly confused.) - HEENT HEENT: Atraumatic, Moist mucous membranes, Pharynx benign - Neck Neck: Supple, no meningeal sign, No adenopathy, No JVD - Cardiac Cardiac: RRR - Respiratory Respiratory: Clear bilaterally - Abdomen Abdomen: Soft, Non tender - Back Back: No CVA TTP - Derm Derm: No rash - Extremities Extremities: No calf tenderness / cord, Other (1+ pedal edema bilaterally.) - Neuro Neuro: No motor deficit, No sensory deficit, Normal speech, Other (Alert, oriented to name and place, not to date.) Eye Opening: Spontaneous Motor: Obeys Commands Verbal: Confused GCS Score: 14 Results - Vitals Vitals: Vital Signs - 24 hr 03/05/19 03/05/19 03/05/19 10:03 10:46 11:26 Temperature 36.1 C L Heart Rate 68 66 62 Respiratory 20 20 19 Rate Blood Pressure 116/55 L 123/55 L 110/64 O2 Saturation 93 98 98 03/05/19 03/05/19 12:08 13:44 Temperature Heart Rate 67 68 Respiratory 19 19 Rate Blood Pressure 154/61 H 120/78 O2 Saturation 97 98 Oxygen O2 Source Room air - EKG (time done) 10:01 Rate: Rate (enter#) (64) Rhythm: NSR [place]: LAD, Anterior hemiblock Intervals: RBBB Ischemia: Non specific changes (Diffuse T-wave flattening.) Compare to prior EKG: Unchanged from prior EKG Computer interpretation: Agree with computer - Labs Labs: Laboratory Tests 03/05/19 03/05/19 03/05/19 06:34 10:39 10:39 WBC 7.2 RBC 2.41 L Hgb 8.3 L Hct 27.6 L MCV 114.5 H MCH 34.4 H MCHC 30.1 L RDW 16.3 H Plt Count 214 MPV 9.9 Neut # (Auto) 4.5 Lymph # (Auto) 1.2 L [place] # (Auto) 0.6 Eos # (Auto) 0.8 H Baso # (Auto) 0.0 Absolute Nucleated RBC 0.00 Nucleated RBC % 0.0 Sodium 140 Potassium 3.8 Chloride 107 Carbon Dioxide 22 Anion Gap 11.0 BUN 26 H Creatinine 1.1 Estimated GFR (MDRD) 63 L Glucose 141 H Lactic Acid 1.5 Calcium 7.9 L Total Bilirubin 0.6 AST 21 ALT 14 Alkaline Phosphatase 46 Troponin I Total Protein 5.4 L Albumin 2.2 L Globulin 3.2 Albumin/Globulin Ratio 0.7 L Lipase 89 H 03/05/19 10:39 WBC RBC Hgb Hct MCV MCH MCHC RDW Plt Count MPV Neut # (Auto) Lymph # (Auto) [place] # (Auto) Eos # (Auto) Baso # (Auto) Absolute Nucleated RBC Nucleated RBC % Sodium Potassium Chloride Carbon Dioxide Anion Gap BUN Creatinine Estimated GFR (MDRD) Glucose Lactic Acid Calcium Total Bilirubin AST ALT Alkaline Phosphatase Troponin I < 0.04 Total Protein Albumin Globulin Albumin/Globulin Ratio Lipase PD MEDICAL DECISION MAKING - ED course Complexity details: reviewed old records, reviewed results, re-evaluated patient, considered differential, d/w patient, d/w family ED course: The patient's presentation is most significant for syncopal episode caused by dehydration. There is no clinical evidence to suggest acute stroke or cardiac etiology. He was recently discharged from the hospital after gastroenteritis with dehydration. His states that his oral intake has been poor. His diarrhea has resolved. His BUN to creatinine ratio is elevated at 26 and 1.1. He is also anemic, with a hemoglobin of 8.3. This is slightly lower than his hemoglobin of 9.9 one week ago. Treatment in the emergency department included administration of normal saline 1 L IV. He felt subjectively improved after that treatment and demonstrated ability to ambulate without lightheadedness. I discussed with him and his the results of his work-up, the importance of adequate oral intake, outpatient follow-up, as well as potentially worrisome signs or symptoms that should prompt reevaluation in the emergency department. Departure - Departure Disposition: 01 Home, Self Care Clinical Impression: Dehydration, Orthostatic lightheadedness, Syncope and collapse Anemia Qualifiers: Anemia type: unspecified type Qualified Code(s): D64.9 - Anemia, unspecified Condition: Stable Instructions: ED Dehydration Follow-Up: Layla Levi MD [Primary Care Provider] - Comments: Drink plenty of fluids. Follow-up with your primary physician within 1 week. Call to schedule an appointment. Return to the emergency department if you develop recurrent lightheadedness, chest pain, shortness of breath, persistent vomiting, or otherwise worsening symptoms. Discharge Date/Time: 03/05/19 13:57
[2019-03-05 10:45] LABS: BASOPHILS % (AUTO) 0.4 %; EOSINOPHILS # (AUTO) 0.8 10^3/uL (0.0-0.7); EOSINOPHILS % (AUTO) 11.7 %; HGB - HEMOGLOBIN 8.3 g/dL (14.0-18.0); LYMPHOCYTES # (AUTO) 1.2 10^3/uL (1.5-3.5); LYMPHOCYTES % (AUTO) 16.5 %; MEAN CORPUSCULAR HEMOGLOBIN 34.4 pg (27.0-31.0); MEAN CORPUSCULAR HGB CONC 30.1 g/dL (32.0-36.0); MEAN CORPUSCULAR VOLUME 114.5 fL (80.0-94.0); MEAN PLATELET VOLUME 9.9 fL (7.4-11.4); MONOCYTES # (AUTO) 0.6 10^3/uL (0.0-1.0); MONOCYTES % (AUTO) 8.7 %; NEUTROPHILS # (AUTO) 4.5 10^3/uL (1.5-6.6); NEUTROPHILS % (AUTO) 61.7 %; PLT - PLATELET COUNT 214 10^3/uL (130-450); RED BLOOD COUNT 2.41 10^6/uL (4.70-6.10); RED CELL DISTRIBUTION WIDTH 16.3 % (12.0-15.0); WHITE BLOOD COUNT 7.2 x10^3/uL (4.8-10.8)
[2019-03-05 11:03] LABS: ALBUMIN 2.2 g/dL (3.2-5.5); ALBUMIN/GLOBULIN RATIO 0.7 (1.0-2.2); BILIRUBIN,TOTAL 0.6 mg/dL (0.2-1.0); CALCIUM 7.9 mg/dL (8.5-10.3); CREATININE 1.1 mg/dL (0.6-1.2); TOTAL PROTEIN 5.4 g/dL (6.7-8.2)
--- NOTE | 2019-03-05 11:04 | CT Report ---
Reason: Tranient right sided weakness Procedure Date: 03/05/2019 Accession Number: [id number] / [id number] Procedure: CT - HEAD WO CPT Code: FULL RESULT: EXAM: CT HEAD EXAM DATE: 03/05/2019 10:51 AM. CLINICAL HISTORY: Transient right-sided weakness. COMPARISON: CERVICAL SPINE W/O 11/26/2018 11:21 AM HEAD W/O 11/26/2018 11:21 AM. TECHNIQUE: Multiaxial CT images were obtained from the foramen magnum to the vertex. Reformats: Sagittal and coronal. IV contrast: None. In accordance with CT protocol optimization, one or more of the following dose reduction techniques were utilized for this exam: automated exposure control, adjustment of mA and/or KV based on patient size, or use of iterative reconstructive technique. FINDINGS: Parenchyma: No intraparenchymal hemorrhage. No evidence of mass, midline shift. Chronic encephalomalacia in the right posterior watershed region appears essentially unchanged. Raines-white differentiation is distinct. Basal ganglia are mineralized. Extraaxial Spaces: Prominence of ventricles and sulci, relatively symmetric when accounting for the right posterior encephalomalacia in keeping with cerebral volume loss. Basal cisterns are preserved. No subdural or epidural collections identified. Ventricles: Normal in size and position. Sinuses and Orbits: Imaged paranasal sinuses, orbits, and mastoids show no significant abnormality. Bones: No evidence of fracture or calvarial defect. Other: None. IMPRESSION: No acute intracranial abnormality is detected. RADIA
[2019-03-05] MEDS ORDERED: SODIUM CHLORIDE 0.9% 1,000 ML IV ONE (11:38)
[2019-03-05 13:46] VITALS: BP 120/78
== END 2019-03-05 13:57 | disposition home or self-care (01) ==
LOC: EDUNIT# → ED 09:56
DX: E86.0 Dehydration (principal); R42 Dizziness and giddiness; R55 Syncope and collapse; D64.9 Anemia, unspecified; F03.90 Unspecified dementia, unspecified severity, without behavioral disturbance, psychotic disturbance, mood disturbance, and anxiety; I25.810 Atherosclerosis of coronary artery bypass graft(s) without angina pectoris; C76.0 Malignant neoplasm of head, face and neck
CPT/HCPCS: 36415; 70450; 80053; 83605; 83690; 84484; 85025; 93005; 99283

== ENCOUNTER 2019-03-05 19:16 | Outpatient (CLI) | payer MEDICARE, BC | END 2019-03-05 19:17 | disposition home or self-care (01) | LOC: EMS 19:16 | PROVIDERS: ATTEND Surgery | DX: R11.10 Vomiting, unspecified (principal); R53.1 Weakness; R47.9 Unspecified speech disturbances | CPT/HCPCS: A0425; A0429 ==

== ENCOUNTER 2019-03-05 19:22 | Inpatient (IN) | payer MEDICARE, BC ==
[2019-03-05 19:50] LABS: BASOPHILS % (AUTO) 0.3 %; EOSINOPHILS % (AUTO) 0.5 %; LYMPHOCYTES # (AUTO) 0.6 10^3/uL (1.5-3.5); LYMPHOCYTES % (AUTO) 9.5 %; MEAN CORPUSCULAR HEMOGLOBIN 34.6 pg (27.0-31.0); MEAN CORPUSCULAR HGB CONC 31.6 g/dL (32.0-36.0); MEAN CORPUSCULAR VOLUME 109.5 fL (80.0-94.0); MEAN PLATELET VOLUME 9.6 fL (7.4-11.4); MONOCYTES # (AUTO) 0.4 10^3/uL (0.0-1.0); MONOCYTES % (AUTO) 6.1 %; NEUTROPHILS # (AUTO) 5.1 10^3/uL (1.5-6.6); NEUTROPHILS % (AUTO) 82.3 %; PLT - PLATELET COUNT 238 10^3/uL (130-450); RED BLOOD COUNT 2.31 10^6/uL (4.70-6.10); WHITE BLOOD COUNT 6.2 x10^3/uL (4.8-10.8)
[2019-03-05 19:57] LABS: ALBUMIN 2.7 g/dL (3.2-5.5); ALBUMIN/GLOBULIN RATIO 0.8 (1.0-2.2); BILIRUBIN,TOTAL 0.6 mg/dL (0.2-1.0); CALCIUM 8.3 mg/dL (8.5-10.3); CREATININE 1.1 mg/dL (0.6-1.2); TOTAL PROTEIN 6.2 g/dL (6.7-8.2)
[2019-03-05 20:03] LABS: INR 1.1 (0.8-1.2); PT - PROTHROMBIN TIME 12.7 secs (9.9-12.6)
--- NOTE | 2019-03-05 20:22 | ED Physician Documentation ---
PD HPI GI BLEED - Stated complaint Stated Complaint: COFFEE GROUND EMESIS - Chief complaint Chief Complaint: Abd Pain - History obtained from History obtained from: Patient, Family - History of Present Illness Timing - onset: Today Timing - details: Abrupt onset, Intermittant Pain level max: 0 Pain level now: 0 Associated symptoms: Vomiting, Coffee ground emesis. No: Hematemesis, BRBPR, Maroon stool, Black/tarry stool Improved by: Other (no ameliorating factors) Worsened by: Other (no exacerbating factors) Similar symptoms before: Has not had sx before Recently seen: Emergency Dept - Additional information Additional information: T+R from this ED earlier today for syncope. Was inpatient [facility] recently for GE (diarrhea> n/v). After d/c from [facility] ED earlier today, he developed vomiting (without nausea) of coffee-ground emesis. He has not had GI bleeding in the past. The family member present in ED said she inspected the vomitus and also perceived there was bright-red blood in the vomitus. Review of Systems Constitutional: reports: Reviewed and negative Eyes: reports: Reviewed and negative Ears: reports: Reviewed and negative Nose: reports: Reviewed and negative Cardiac: reports: Reviewed and negative Respiratory: reports: Reviewed and negative GI: reports: Vomiting, Hematemesis. denies: Abdominal Pain, Nausea, Constipation, Diarrhea, Bloody / black stool : denies: Dysuria, Frequency Skin: reports: Reviewed and negative Musculoskeletal: reports: Reviewed and negative Neurologic: reports: Reviewed and negative Psychiatric: reports: Reviewed and negative PD PAST MEDICAL HISTORY - Past Medical History Past Medical History: Yes Cardiovascular: [place] Neuro: Dementia Musculoskeletal: Osteoarthritis, Gout - Past Surgical History Past Surgical History: Yes Cardiovascular: CABG - Present Medications Home Medications: Ambulatory Orders Medication Instructions Recorded Confirmed Allopurinol 300 mg PO DAILY 03/02/14 03/06/19 Ascorbate Calcium [Vitamin C] 500 mg PO DAILY 03/02/14 03/06/19 Atorvastatin Calcium [Lipitor] 40 mg PO DAILY 03/02/14 03/06/19 Cyanocobalamin (Vitamin B-12) 500 mcg PO DAILY 03/02/14 03/06/19 [Vitamin B-12] Multivitamin [Multivitamins] 1 each PO DAILY 03/02/14 03/06/19 glipiZIDE [Glucotrol] 2.5 mg PO DAILY 03/02/14 03/06/19 raNITIdine [Zantac] 150 mg PO BID 03/02/14 03/06/19 Escitalopram [Lexapro] 10 mg PO DAILY 02/28/16 03/06/19 Cholecalciferol (Vitamin D3) 2,000 unit PO DAILY 05/21/17 03/06/19 [Vitamin D3] Ferrous Sulfate 325 mg PO DAILY #15 tablet 03/07/19 Omeprazole 40 mg PO BID #30 capsule. 03/07/19 Sucralfate 1 gm PO TID #45 tablet 03/07/19 - Allergies Allergies/Adverse Reactions: Allergies Allergy/AdvReac Type Severity Reaction Status Date / Time amoxicillin [From Augmentin] Allergy Hallucinati Verified 03/05/19 10:06 ons azithromycin Allergy Hives Verified 03/05/19 10:06 clavulanic acid Allergy Hallucinati Verified 03/05/19 10:06 [From Augmentin] ons gentamicin Allergy Rash Verified 03/05/19 10:06 morphine Allergy Hallucinati Verified 03/05/19 10:06 ons prednisone Allergy Hallucinati Verified 03/05/19 10:06 ons narcotics AdvReac Hallucinati Uncoded 03/05/19 10:06 ons - Social History Does the pt smoke?: No Smoking Status: Never smoker Does the pt drink ETOH?: No Does the pt have substance abuse?: No - Immunizations Immunizations are current?: Yes - POLST Patient has POLST: Yes PD ED PE NORMAL - Vitals Vital signs reviewed: Yes - General General: No acute distress, Well developed/nourished, Other (awake, alert, oriented x 2) - HEENT HEENT: Moist mucous membranes - Neck Neck: Supple, no meningeal sign - Cardiac Cardiac: RRR, No murmur - Respiratory Respiratory: No respiratory distress, Clear bilaterally - Abdomen Abdomen: Normal bowel sounds, Soft, Non tender, Non distended - Back Back: No CVA TTP - Derm Derm: Warm and dry, Other (mild pallor) - Extremities Extremities: No edema PD ED PE EXPANDED - Rectal Rectal: Heme Occult Neg - QC+ Results - Vitals Vitals: Oxygen O2 Source Room air - Labs Labs: Laboratory Tests 03/05/19 03/05/19 03/05/19 19:35 19:35 19:35 WBC 6.2 RBC 2.31 L Hgb 8.0 L Hct 25.3 L MCV 109.5 H MCH 34.6 H MCHC 31.6 L RDW 16.0 H Plt Count 238 MPV 9.6 Neut # (Auto) 5.1 Lymph # (Auto) 0.6 L [place] # (Auto) 0.4 Eos # (Auto) 0.0 Baso # (Auto) 0.0 Absolute Nucleated RBC 0.00 Nucleated RBC % 0.0 PT 12.7 H INR 1.1 APTT 24.0 L Sodium Potassium Chloride Carbon Dioxide Anion Gap BUN Creatinine Estimated GFR (MDRD) Glucose Glycated Hemoglobin Estim Average Glucose Calcium Total Bilirubin AST ALT Alkaline Phosphatase B-Natriuretic Peptide Total Protein Albumin Globulin Albumin/Globulin Ratio Lipase Blood Type O POSITIVE Blood Type Recheck Antibody Screen NEGATIVE Crossmatch IS Only See Detail 03/05/19 03/05/19 03/05/19 19:35 19:38 19:38 WBC RBC Hgb Hct MCV MCH MCHC RDW Plt Count MPV Neut # (Auto) Lymph # (Auto) [place] # (Auto) Eos # (Auto) Baso # (Auto) Absolute Nucleated RBC Nucleated RBC % PT INR APTT Sodium 142 Potassium 4.0 Chloride 106 Carbon Dioxide 26 Anion Gap 10.0 BUN 29 H Creatinine 1.1 Estimated GFR (MDRD) 63 L Glucose 141 H Glycated Hemoglobin 5.9 Estim Average Glucose 123 H Calcium 8.3 L Total Bilirubin 0.6 AST 24 ALT 16 Alkaline Phosphatase 53 B-Natriuretic Peptide 158 H Total Protein 6.2 L Albumin 2.7 L Globulin 3.5 Albumin/Globulin Ratio 0.8 L Lipase 35 Blood Type Blood Type Recheck Antibody Screen Crossmatch IS Only 03/05/19 20:00 WBC RBC Hgb Hct MCV MCH MCHC RDW Plt Count MPV Neut # (Auto) Lymph # (Auto) [place] # (Auto) Eos # (Auto) Baso # (Auto) Absolute Nucleated RBC Nucleated RBC % PT INR APTT Sodium Potassium Chloride Carbon Dioxide Anion Gap BUN Creatinine Estimated GFR (MDRD) Glucose Glycated Hemoglobin Estim Average Glucose Calcium Total Bilirubin AST ALT Alkaline Phosphatase B-Natriuretic Peptide Total Protein Albumin Globulin Albumin/Globulin Ratio Lipase Blood Type Blood Type Recheck O POSITIVE Antibody Screen Crossmatch IS Only PD MEDICAL DECISION MAKING - ED course Complexity details: reviewed old records, reviewed results, re-evaluated patient, considered differential, d/w patient, d/w family Departure - Departure Disposition: 66 [facility] DC/Xfer Clinical Impression: Anemia, Upper gastrointestinal bleed Condition: Poor Discharge Date/Time: 03/05/19 23:47
[2019-03-05] MEDS ORDERED: PANTOPRAZOLE 40 MG VIAL IVP STA (20:50)
[2019-03-05] MEDS ORDERED: ONDANSETRON 4 MG/2 ML VIAL IVP STA (20:50)
[2019-03-05] MEDS ORDERED: ONDANSETRON 4 MG/2 ML VIAL IVP PRN (22:41)
[2019-03-05] MEDS ORDERED: PROCHLORPERAZINE 10 MG/2 ML VIAL IVP PRN (22:41)
[2019-03-05] MEDS ORDERED: D5NS W/20 MEQ KCL 1,000 ML IV SCH (23:00)
--- NOTE | 2019-03-05 23:09 | HISTORY & PHYSICAL EXAMINATION ---
Chief Complaint - Chief Complaint Chief Complaint: Upper GI bleeding GI Bleed Admit Template - Admitted From Admitted from: ED - History Obtained From Records Reviewed: RN notes reviewed, Old records reviewed History obtained from: Patient, Family Exam limitations: Clinical condition, Other (Patient with dementia) - History of Present Illness HPI Comment/Other: This is a 88-year-old male with a complicated past medical history to include Type 2 diabetes mellitus [id number], osteoarthritis, gout, coronary artery disease with quadruple bypass, hyperlipidemia, JOSELYN on CPAP, Multifacorial anemia, Spinal stenosis at the level of C-spine and L-spine w/ no bony mets seen on on recent CT of head, soft tissue, CT chest in 01/17/19, CKD stage III, CLL diagnosed in 2007 status post Rituxan tx with complete response since 04/26, 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 Borjas. Patient currently sees Dr. Peter at [facility], Radiation oncologist at [facility]. Patient had a left hip fracture and was repaired on 11/26 status post ORIF at [facility] with orthopedic service [facility]. Patient had an hospital admission to [facility] on 02/26 For acute viral gastroenteritis with associated diarrhea with negative C. difficile presumedly secondary to Keytruda or radiation. Patient had presented to the ED visit earlier for a syncopal event and was discharged with CT head being unremarkable. Patient presents now with vomiting (without nausea) of coffee-ground emesis. He has not had GI bleeding in the past. The family member present in ED said she inspected the vomitus and also perceived there was bright-red blood in the vomitus. On initial examination hemoglobin is 8.0 with patient's baseline running between 11.5 to 12.2 g/dL, last recent hemoglobin earlier in ED visit on 03/05 was 8.3 g/dL. Creatinine was 1.1 with prior baseline running between 1.1-1.6. Patient denied abdominal pain, diarrhea, MP rash, joint swelling, or GI symptoms. Guaic negative in ED, received IV PPI, Gen surgery called about possible Endoscopy, with 2 units T+S and transfuse first due to CAD/CABG hx with <8g/dl threshold. BLLE edema seen with 2+ pitting edema and no rales on exam. PMH/PSH - Past Medical History Cardiovascular: positive: Coronary artery disease, MA Neuro: positive: Dementia Endocrine/Autoimmune: positive: Type 2 diabetes Musculoskeletal: positive: Osteoarthritis, Gout - Past Surgical History Ortho: positive: Other (Left hip ORIF) Cardiovascular: positive: CABG Social & Family Hx - Social History Does the pt smoke?: No Smoking Status: Never smoker Does the pt drink ETOH?: No Does the pt have substance abuse?: No - POLST Patient has POLST: Yes Meds/Allgy - Home Medications Home Medications: Ambulatory Orders Medication Instructions Recorded Confirmed Allopurinol 300 mg PO DAILY 03/02/14 01/15/19 Ascorbate Calcium [Vitamin C] 500 mg PO DAILY 03/02/14 01/15/19 Atorvastatin Calcium [Lipitor] 40 mg PO DAILY 03/02/14 01/15/19 Cyanocobalamin (Vitamin B-12) 500 mcg PO DAILY 03/02/14 01/15/19 [Vitamin B-12] Multivitamin [Multivitamins] 1 each PO DAILY 03/02/14 01/15/19 glipiZIDE [Glucotrol] 2.5 mg PO DAILY 03/02/14 01/15/19 raNITIdine [Zantac] 150 mg PO BID 03/02/14 01/15/19 Aspirin [Adult Low Dose Aspirin EC] 81 mg PO DAILY 02/22/15 01/15/19 Escitalopram [Lexapro] 10 mg PO DAILY 02/28/16 01/15/19 Cholecalciferol (Vitamin D3) 2,000 unit PO DAILY 05/21/17 01/15/19 [Vitamin D] cephALEXin [Cephalexin] 500 mg PO QID MDD 10 days 01/15/19 01/15/19 - Allergies Allergies/Adverse Reactions: Allergies Allergy/AdvReac Type Severity Reaction Status Date / Time amoxicillin [From Augmentin] Allergy Hallucinati Verified 03/05/19 10:06 ons azithromycin Allergy Hives Verified 03/05/19 10:06 clavulanic acid Allergy Hallucinati Verified 03/05/19 10:06 [From Augmentin] ons gentamicin Allergy Rash Verified 03/05/19 10:06 morphine Allergy Hallucinati Verified 03/05/19 10:06 ons prednisone Allergy Hallucinati Verified 03/05/19 10:06 ons narcotics AdvReac Hallucinati Uncoded 03/05/19 10:06 ons Review of Systems - All Other Systems All Other Systems: reports: Reviewed and negative Prior Level of Functionality: Unknown Exam - Vital Signs Reviewed Vital Signs: Yes Vital Signs: Vital Signs x48h Temp Pulse Resp BP Pulse Ox 03/05/19 22:45 87 22 113/71 95 03/05/19 21:50 94 26 H 146/62 H 94 03/05/19 20:29 89 27 H 156/68 H 95 03/05/19 19:35 73 21 149/72 H 95 03/05/19 19:30 36.7 C 71 12 149/72 H 96 - Physical Exam General Appearance: positive: No acute distress, Alert, Other (chronically ill- appearing) Eyes Bilateral: positive: Normal inspection, EOMI, Conjunctivae nml ENT: positive: ENT inspection nml, Pharynx nml, No signs of dehydration Neck: positive: Nml inspection, Thyroid nml, No JVD, Trachea midline. negative: Thyromegaly Respiratory: positive: Chest non-tender, No respiratory distress, Breath sounds nml Cardiovascular: positive: Regular rate & rhythm, No murmur, No gallop. negati ve: JVD present Peripheral Pulses: positive: 2+ Abdomen: positive: Non-tender, No organomegaly, Nml bowel sounds, No distention Skin: positive: No rash, Warm, Pallor, Other (2 well-circumscribed lesions to patient's face/chin). negative: Skin rash Extremities: positive: Non-tender, Full ROM, Pedal edema, Other (2+ pitting edema to bilateral lower extremities) Neurologic/Psychiatric: positive: CN's nml (2-12), Disoriented to person, Weakness. negative: Slurred/abnml speech, Depressed mood/affect Results - Lab Results Lab results reviewed: Yes Fish Bones: 03/06/19 04:05 03/05/19 19:35 Other Lab Results: Lab Results x24hrs 03/05/19 03/05/19 03/05/19 Range/Units 20:00 19:35 19:35 WBC (4.8-10.8) x10^3/uL RBC (4.70-6.10) 10^6/uL Hgb (14.0-18.0) g/dL Hct (42.0-52.0) % MCV (80.0-94.0) fL MCH (27.0-31.0) pg MCHC (32.0-36.0) g/dL RDW (12.0-15.0) % Plt Count (130-450) 10^3/uL MPV (7.4-11.4) fL Neut # (Auto) (1.5-6.6) 10^3/uL Lymph # (Auto) (1.5-3.5) 10^3/uL Ashley # (Auto) (0.0-1.0) 10^3/uL Eos # (Auto) (0.0-0.7) 10^3/uL Baso # (Auto) (0.0-0.1) 10^3/uL Absolute Nucleated RBC x10^3/uL Nucleated RBC % /100WBC PT 12.7 H (9.9-12.6) secs INR 1.1 (0.8-1.2) APTT 24.0 L (24.9-33.3) secs Sodium 142 (135-145) mmol/L Potassium 4.0 (3.5-5.0) mmol/L Chloride 106 (101-111) mmol/L Carbon Dioxide 26 (21-32) mmol/L Anion Gap 10.0 (6-13) BUN 29 H (6-20) mg/dL Creatinine 1.1 (0.6-1.2) mg/dL Estimated GFR (MDRD) 63 L (>89) Glucose 141 H (70-100) mg/dL Calcium 8.3 L (8.5-10.3) mg/dL Total Bilirubin 0.6 (0.2-1.0) mg/dL AST 24 (10-42) IU/L ALT 16 (10-60) IU/L Alkaline Phosphatase 53 (42-121) IU/L Total Protein 6.2 L (6.7-8.2) g/dL Albumin 2.7 L (3.2-5.5) g/dL Globulin 3.5 (2.1-4.2) g/dL Albumin/Globulin Ratio 0.8 L (1.0-2.2) Lipase 35 (22-51) U/L Blood Type Blood Type Recheck O POSITIVE Antibody Screen 03/05/19 03/05/19 Range/Units 19:35 19:35 WBC 6.2 (4.8-10.8) x10^3/uL RBC 2.31 L (4.70-6.10) 10^6/uL Hgb 8.0 L (14.0-18.0) g/dL Hct 25.3 L (42.0-52.0) % MCV 109.5 H (80.0-94.0) fL MCH 34.6 H (27.0-31.0) pg MCHC 31.6 L (32.0-36.0) g/dL RDW 16.0 H (12.0-15.0) % Plt Count 238 (130-450) 10^3/uL MPV 9.6 (7.4-11.4) fL Neut # (Auto) 5.1 (1.5-6.6) 10^3/uL Lymph # (Auto) 0.6 L (1.5-3.5) 10^3/uL Ashley # (Auto) 0.4 (0.0-1.0) 10^3/uL Eos # (Auto) 0.0 (0.0-0.7) 10^3/uL Baso # (Auto) 0.0 (0.0-0.1) 10^3/uL Absolute Nucleated RBC 0.00 x10^3/uL Nucleated RBC % 0.0 /100WBC PT (9.9-12.6) secs INR (0.8-1.2) APTT (24.9-33.3) secs Sodium (135-145) mmol/L Potassium (3.5-5.0) mmol/L Chloride (101-111) mmol/L Carbon Dioxide (21-32) mmol/L Anion Gap (6-13) BUN (6-20) mg/dL Creatinine (0.6-1.2) mg/dL Estimated GFR (MDRD) (>89) Glucose (70-100) mg/dL Calcium (8.5-10.3) mg/dL Total Bilirubin (0.2-1.0) mg/dL AST (10-42) IU/L ALT (10-60) IU/L Alkaline Phosphatase (42-121) IU/L Total Protein (6.7-8.2) g/dL Albumin (3.2-5.5) g/dL Globulin (2.1-4.2) g/dL Albumin/Globulin Ratio (1.0-2.2) Lipase (22-51) U/L Blood Type O POSITIVE Blood Type Recheck Antibody Screen NEGATIVE - Diagnostic Imaging Results Diagnostic Imaging Results: positive: Final report reviewed - EKG Results EKG Interpreted Independently: Yes EKG Comparison: positive: No prior EKG Impression/Plan - Problem List Problem List: 1. Acute symptomatic blood loss anemia secondary from possible upper GI bleed; Boerhaave's versus Karrie-Murrieta tear or esophageal variceal bleed. -Predisposing factors was patient's neutron radiation approx 3-4 weeks ago. This may have desiccated patient's esophageal tissue predisposing for upper GI bleedi ng. Dr. Ocasio from gen surgery consulted. Endoscopy likely on Sunday in am. Will place in NPO, bowel rest, IV PPI, carafate, supportive care, optimize H/H to transfuse under a liberal protocol threshold due to patient's prior CAD/CABG hx. Obtain TSH, Iron panel, b12, FA level, FOBT x 1 was neg. 2. Multifactorial anemia -Patient was on Keytruda and was d/c'ed on 05/28 per family member. Has hx TAMI, was on iron supplementation, and has anemia of chronic disease as it pertains to CKD-3, would check labs per above and optimize H/H with PRBC's as deemed necessary for possible endoscopic procedure. 3. BL Edema -Per Family member this is persistent but not getting worse but since his surgery in 11/26 of left hip it is of new onset. Would get a BNP, ECHO to eval for possible radiation induced cardiomyopahthy or systolic CHF. Would hold off on diuresis with lasix for now due to CKD-3 and recent bleeding event. 4. History of Nicole cell carcinoma with local metastasis status post recent neutron radiation, status post local excision and reconstruction with alexandria dissection followed by XRT, status post Keytruda immunotherapy since 04/26 with complete response -Hem/onc followign as outpatient, please refer to Gerardo Borjas note 05/20/18. sees Dr. Peter @[facility], call [phone] for further information. Would hold off on any chemorad tx or immunotx for now as H/H needs to be optimized and ECHO to exclude new onset CM or systolic CHF. 5. CLL s/p rituxan 2007 -Currently off of this agent, to follow up with Hem/onc as outpatient 6. Multilevel Spine stenosis with associated radiculopathy to C/L spine w/o mets or cord impingement w/ associated falls -Patient was being seen by palliative care services as outpatient since they were unable to see outpatient PT/OT. Would likely need to be assessed here to see if he is a candidate for rehab or TCU plcmt. 7. CKD stage 3 -Patient at his baseline and would need to avoid nephrotoxic agents and diuretics for now despite his LE edema. Correct underlying electrolyte d/o. Correct iron deficiencies as it pertains to anemia of chronic kidney disease. May benefit from procrit/epogen in future. 8. HLP -resume statin once tolerating PO. 9. JOSELYN on CPAP -Resume CPAP if tolerates 10. Squamous cell carcinoma of the skull superficial seeing dermatology -Sees derm 11. CAD with CABG -med mgmt for now once he is tolerating PO, NTG prn, statin, avoid ASA. 12. Advance Care planning and education/counseling -Patient and family discussed in detail on medical conditions as well as trajectory of illness, complications, prognosis with patient beliefs, values in mind. They continue to choose DNR status with selective tx per POLST signed on 01/16/19. Code status: DNR with selective tx per POLST in 01/16/19 Core Measures - Anticipated LOS I expect patient to be DC'd or transferred within 96 hours.: Yes - Issues Hospital Issues and Management Plan: Patient will require transfusions, medical management, palliative care services, and readdressing goals of care as per POLST - DVT/VTE - Prophylaxis VTE/DVT Device ordered at admit?: Yes VTE/DVT Prophylaxis med ordered at admit?: No Not Ordered - Medical Reason: Contraindicated - Stroke - Rehab Assessment Rehab services assessment to be ordered?: No Not Ordered - Medical Reason: Not indicated - AMI - Statin at Admit Aspirin Prescribed on Admit: No Not Ordered - Medical Reason: Contraindicated
[2019-03-05 23:34] LABS: HB2 TOTAL 8.3 g/dL; HEMOGLOBIN A1C 0.34 g/dL; HEMOGLOBIN A1C % 5.9 % (4.6-6.2)
[2019-03-06] MEDS: SODIUM CHLORIDE FLUSH 0.9% 10 ML SYRINGE IVP SCH ×3 (00:15→17:52)
[2019-03-06] MEDS: INSULIN REGULAR HUMAN 100 UNIT/1 ML 10 ML MDV SUBQ SCH ×4 (01:01→17:52)
[2019-03-06] MEDS ORDERED: NITROGLYCERIN SL 0.4 MG TABLET SL PRN (01:19)
[2019-03-06 04:27] LABS: HGB - HEMOGLOBIN 6.4 g/dL (14.0-18.0)
[2019-03-06] MEDS ORDERED: FUROSEMIDE 20 MG/2 ML VIAL IVP PRN (04:44)
[2019-03-06 05:43] LABS: % IRON SATURATION 12 % (20-50); IRON 14 ug/dL (45-182); TOTAL IRON BINDING CAPACITY 115 ug/dL (250-450); TRANSFERRIN 82 mg/dL (180-329)
[2019-03-06 06:20] LABS: FOLATE > 49.60 ng/mL (5.90 - >24.8)
[2019-03-06] MEDS ORDERED: SODIUM CHLORIDE 0.9% 500 ML IV ONE (06:57)
[2019-03-06] MEDS: POLYETHYLENE GLYCOL 3350 17 GM PACKET PO SCH (09:06)
[2019-03-06 09:26] LABS: BASOPHILS % (AUTO) 0.2 %
[2019-03-06 09:35] LABS: EOSINOPHILS # (AUTO) 0.2 10^3/uL (0.0-0.7); EOSINOPHILS % (AUTO) 1.3 %; LYMPHOCYTES # (AUTO) 1.4 10^3/uL (1.5-3.5); LYMPHOCYTES % (AUTO) 10.4 %; MEAN CORPUSCULAR HEMOGLOBIN 35.2 pg (27.0-31.0); MEAN CORPUSCULAR VOLUME 109.9 fL (80.0-94.0); MEAN PLATELET VOLUME 10.5 fL (7.4-11.4); MONOCYTES % (AUTO) 7.6 %; NEUTROPHILS # (AUTO) 10.6 10^3/uL (1.5-6.6); PLT - PLATELET COUNT 209 10^3/uL (130-450); RED BLOOD COUNT 1.82 10^6/uL (4.70-6.10); RED CELL DISTRIBUTION WIDTH 16.5 % (12.0-15.0); WHITE BLOOD COUNT 13.2 x10^3/uL (4.8-10.8)
[2019-03-06 09:48] LABS: ALBUMIN 2.1 g/dL (3.2-5.5); ALBUMIN/GLOBULIN RATIO 0.7 (1.0-2.2); BILIRUBIN,TOTAL 0.7 mg/dL (0.2-1.0); CALCIUM 7.8 mg/dL (8.5-10.3); MAGNESIUM 1.5 mg/dL (1.7-2.8)
[2019-03-06 09:55] LABS: HGB - HEMOGLOBIN 6.4 g/dL (14.0-18.0)
[2019-03-06 10:02] LABS: PLATELET ESTIMATE, MANUAL NORMAL (130-450,000) (NORMAL); PLATELET MORPHOLOGY NORMAL APPEARANCE (NORMAL)
[2019-03-06 10:04] LABS: RBC MORPHOLOGY (MULTIPLE) 3+ HYPOCHROMASIA (NORMAL)
[2019-03-06] MEDS: PANTOPRAZOLE 40 MG VIAL IVP SCH ×2 (11:27→20:46)
[2019-03-06] MEDS: SODIUM CHLORIDE FLUSH 0.9% 10 ML SYRINGE IVP PRN (11:27)
--- NOTE | 2019-03-06 13:01 | CONSULTATION NOTE ---
Palliative Care Follow Up - Referral Referring Provider: Khalif Stock Time of Visit: Referral setting: Hospitalized patient Referral Reason: Merke Cell Carcinoma/Goals of Care - Information Sources Records reviewed: Previous records reviewed History/Review of Systems obtained from: Family ( Daniela at bedside) Exam limitations: Clinical condition (patient lethargic/dementia) - History of Present Illness Update Brief HPI Update: This is an 88-year-old gentleman with complicated history. 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 Area had filled right neck, now it is faded pink. He does have 2 active lesions currently on his chin and to the right of his cheek, about quarter size. She reports these are enlarging fairly rapidly. The plan is to have neutron therapy again on Sunday and Sunday, as it has responded well before. 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 They are waiting on final insurance approval and final plan regarding this. Patient did receive Keytruda with progression last fall. Most acutely patient was admitted for [facility] last week, with severe and profuse diarrhea. He was there for almost a week, with no underlying etiology other than most likely viral. They had returned home, was doing fairly well, until Sunday where he went had not had happened was he had a seizure. He was identified as a syncopal event, and was discharged after CT scan of the head was unremarkable. They had returned home, and then he had a large emesis coffee grounds, now he presents with severe anemia, is currently receiving transfusion. He has not had earlier GI bleeds, the plan is for endoscopy tomorrow. Patient also had hip fracture this year, this was in late November, he was discharged at that time to [facility] for rehab. Has been followed after that by [facility], and then on to outpatient therapy. In January he had an a cute episode where he choked, and remains at high risk for aspiration, though some of his behaviors have improved regarding this. Patient does have dementia, his symptoms have been progressive, he is quite pleasant, but does need cueing, supervision, and has very little insight into his current situation. is been managing his care and multiple appointments as well as trying to access more caregiving support.Palliative care has seen them for a couple visits, patient has been getting active treatment, with the plan to follow-up after therapies completed. Patient's past medical history also includes diabetes type 2, CLL diagnosed in August 2015 with [place] treatments to 2015. History of hepatitis, quadruple bypass, right knee repair, and left knee replacement. 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 His original [place] cell carcinoma was diagnosed 2016 on the forehead, with surgery and flap, with neutron radiation to the right cheek, right eyebrow, followed by Keytruda immunotherapy. He had neutron radiation to the right chin and jaw June 2018. As well as a fractured left hip with nails and screws inserted December 2018. Social History - Living Situation Living arrangement: At home Living Situation: With spouse/s.o. Support System: Patient and have been over 30 years, they came out to the [place] at the point of time that they retired. 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 [place], he does have 4 children, she has a son. 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 They have very helpful neighbors, that often come over and help when patient has had falls. She has been trying to get some assistance in the home, has met with senior services, has 26 hours allotted but has not been able to find caregivers. She has been paying someone privately. She herself is trying to arrange for some support so she can have surgery on her feet. Patient has had a series of unfortunate and continued events. They are very close despite his dementia, she is quite willing to be caregiver, but does need some respite and a long-term plan. Medications/Allergies - Medications Active Medication List: Active Medications Ferrous Sulfate (Feosol) 325 mg PO BIDWM JULES Furosemide (Lasix Inj 20mg Vial) 20 mg IVP ONCE PRN PRN Reason: Between units Stop: 03/07/19 04:43 Last Admin: 03/06/19 11:27 Dose: 20 mg Potassium Chloride/Dextrose/Sod Cl () 1,000 mls @ 125 mls/hr IV .Q8H [facility] Last Infusion: 03/06/19 08:39 Dose: Infused Insulin Human Regular (Novolin R) 1 - 5 unit SUBQ Q6HR [facility]; Protocol Last Admin: 03/06/19 07:08 Dose: Not Given Nitroglycerin (Nitrostat) 0.4 mg SL Q5MIN PRN PRN Reason: Chest Pain Ondansetron HCl (Zofran Inj) 4 mg IVP Q6HR PRN PRN Reason: Nausea / Vomiting Pantoprazole Sodium (Protonix) 40 mg IVP BID [facility] Last Admin: 03/06/19 11:27 Dose: 40 mg Polyethylene Glycol (Miralax) 17 gm PO DAILY [facility] Last Admin: 03/06/19 09:06 Dose: Not Given Prochlorperazine Edisylate (Compazine Inj) 10 mg IVP Q6HR PRN PRN Reason: Nausea / Vomiting Sodium Chloride (Normal Saline Flush 0.9%) 10 ml IVP PRN PRN PRN Reason: NEEDED PER PROVIDER ORDERS Last Admin: 03/06/19 11:27 Dose: 50 ml Sodium Chloride (Normal Saline Flush 0.9%) 10 ml IVP 0100,0900,1700 [facility] Last Admin: 03/06/19 11:27 Dose: 10 ml Allopurinol 300 mg PO DAILY 03/02/14 Ascorbate Calcium [Vitamin C] 500 mg PO DAILY 03/02/14 Atorvastatin Calcium [Lipitor] 40 mg PO DAILY 03/02/14 Cyanocobalamin (Vitamin B-12) [Vitamin B-12] 500 mcg PO DAILY 03/02/14 Multivitamin [Multivitamins] 1 each PO DAILY 03/02/14 glipiZIDE [Glucotrol] 2.5 mg PO DAILY 03/02/14 raNITIdine [Zantac] 150 mg PO BID 03/02/14 Aspirin [Adult Low Dose Aspirin EC] 81 mg PO DAILY 02/22/15 Escitalopram [Lexapro] 10 mg PO DAILY 02/28/16 Cholecalciferol (Vitamin D3) [Vitamin D] 2,000 unit PO DAILY 05/21/17 Atorvastatin Calcium 40 mg PO QPM 03/06/19 - Allergies Allergies/Adverse Reactions: Allergies Allergy/AdvReac Type Severity Reaction Status Date / Time amoxicillin [From Augmentin] Allergy Hallucinati Verified 03/05/19 10:06 ons azithromycin Allergy Hives Verified 03/05/19 10:06 clavulanic acid Allergy Hallucinati Verified 03/05/19 10:06 [From Augmentin] ons gentamicin Allergy Rash Verified 03/05/19 10:06 morphine Allergy Hallucinati Verified 03/05/19 10:06 ons prednisone Allergy Hallucinati Verified 03/05/19 10:06 ons narcotics AdvReac Hallucinati Uncoded 03/05/19 10:06 ons Review of Systems - Constitutional Constitutional: reports: Fatigue, Weight loss - Eyes Eyes: reports: Vision loss - Ears, Nose & Throat Ears, Nose & Throat: reports: Hearing loss, Hearing aids, Dry mouth - Cardiovascular Cardiovascular: reports: Decr. 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 with cues) - Genitourinary Genitourinary: reports: Frequency - Musculoskeletal Musculoskeletal: reports: Stiffness, Limited range of motion, Muscle weakness, Assistive devices (had improved functional status; was able to ambulate short distances with walker) - Integumentary Integumentary: reports: Dryness, Other (Nicole Cell on neck treated faded pink area; two active lesions 3 cm chin; 2 cms right of lip) - Neurological Neurological: reports: General weakness, Memory problems (severe STM issues; some impulsivity; no agitation or anxiety; very cooperative with care; likes to joke when feeling good) - Psychiatric Psychiatric: denies: Depression, Anxiety, Behavior disturbances - Hematologic/Lymphatic Hematologic/Lymphatic: reports: Anemia (acute; does not know if anemic at [place]) - All Other Systems All Other Systems: reports: Other (limited ROS patient fatigued) Physical Exam - Vital Signs Vital Signs: Vital Signs x48h Temp Pulse Pulse Resp BP BP Pulse Ox 03/06/19 12:13 36.9 C 71 18 107/51 L 03/06/19 11:54 36.7 C 64 18 115/50 L 03/06/19 11:25 36.7 C 67 16 118/55 L 03/06/19 08:54 36.9 C 71 18 121/47 L 03/06/19 08:33 37.0 C 72 18 127/57 L 03/06/19 06:46 36.8 C 72 16 120/54 L 96 - Physical Exam General Appearance: positive: No acute distress, Lethargic Eyes Bilateral: positive: Normal inspection Neck: positive: Trachea midline Cardiovascular: positive: Regular rate & rhythm Respiratory: positive: No respiratory distress Abdomen: positive: Non-tender, Soft, Nml bowel sounds. negative: Mass, Distended Skin: positive: Other (nicole cell 2 lesions on face) Extremities: positive: Pedal edema (left greater than right) Neurologic/Psychiatric: positive: Mood/affect nml, Disoriented to time, Weakne ss, Other (pleasant but sleepy) Palliative Care - POLST Patient has POLST: Yes POLST Status: DNR, Selective Treatment Pain: No pain Feelings of wellbeing/Perceived Quality of Life: Acceptable - Palliative Care Discussion: Discussion with , when patient had been at [facility], they had suggested hospice. Counseling provided regarding goals of care, reviewed patient most likely would meet criteria, if he chose no further treatment. Reviewed the criteria hospice is 6 months or less given the natural course of the disease, but also goals need to be comfort focused, which means no further treatment, would not include pursuing immunotherapy, and no further hospitalizations. She does recognize he is frail, and the seriousness of his illness, but they are hoping to at least be able to complete the neutron therapy. There is also the unknown of his current acute issues that brought him in to the hospital. Goals have been to focus on comfort, but still at this point in time treat reversible conditions, and continue to weigh benefits and burdens moving forward. Patient did participate in the POLST conversation previously, DNA R/selective treatments were selected with a cosigned by . We discussed in the context of future goals, needing to have further information regarding his current acute stay. Can continue to weigh benefits of burdens of treatments moving forward, including consideration of immunotherapy. At this point time his quality of life has improved, is unclear if they would transition to hospice unless he deteriorated or further diagnoses with endoscopy tomorrow may influence decision. Palliative care to continue provide support regarding ongoing treatment and treatment goals. Results - Lab Results Lab results reviewed: Yes Fish Bones: 03/06/19 04:05 03/06/19 09:19 Lab and Imaging Results: Lab Results x24hrs 03/06/19 03/06/19 03/06/19 Range/Units 09:19 04:05 04:05 WBC 13.2 H (4.8-10.8) x10^3/uL RBC 1.82 L (4.70-6.10) 10^6/uL Hgb 6.4 L* (14.0-18.0) g/dL Hct 20.0 L* (42.0-52.0) % MCV 109.9 H (80.0-94.0) fL MCH 35.2 H (27.0-31.0) pg MCHC 32.0 (32.0-36.0) g/dL RDW 16.5 H (12.0-15.0) % Plt Count 209 (130-450) 10^3/uL MPV 10.5 (7.4-11.4) fL Neut # (Auto) 10.6 H (1.5-6.6) 10^3/uL Lymph # (Auto) 1.4 L (1.5-3.5) 10^3/uL Lyman # (Auto) 1.0 (0.0-1.0) 10^3/uL Eos # (Auto) 0.2 (0.0-0.7) 10^3/uL Baso # (Auto) 0.0 (0.0-0.1) 10^3/uL Absolute Nucleated RBC 0.00 x10^3/uL Nucleated RBC % 0.0 /100WBC Manual Slide Review Indicated WBC Morphology 1+ VACUOLATION (NORMAL) Platelet Estimate NORMAL (130-450,000) (NORMAL) Platelet Morphology NORMAL APPEARANCE (NORMAL) RBC Morph Micro Appear 3+ HYPOCHROMASIA (NORMAL) PT (9.9-12.6) secs INR (0.8-1.2) APTT (24.9-33.3) secs Sodium 140 (135-145) mmol/L Potassium 3.9 (3.5-5.0) mmol/L Chloride 111 (101-111) mmol/L Carbon Dioxide 25 (21-32) mmol/L Anion Gap 4.0 L (6-13) BUN 27 H (6-20) mg/dL Creatinine 1.0 (0.6-1.2) mg/dL Estimated GFR (MDRD) 71 L (>89) Glucose 122 H (70-100) mg/dL Glycated Hemoglobin (4.6-6.2) % Estim Average Glucose (70-100) Calcium 7.8 L (8.5-10.3) mg/dL Magnesium 1.5 L (1.7-2.8) mg/dL Iron (45-182) ug/dL TIBC (250-450) ug/dL % Saturation (20-50) % Transferrin (180-329) mg/dL Total Bilirubin 0.7 (0.2-1.0) mg/dL AST 21 (10-42) IU/L ALT 14 (10-60) IU/L Alkaline Phosphatase 37 L (42-121) IU/L B-Natriuretic Peptide (5-100) pg/mL Total Protein 5.0 L (6.7-8.2) g/dL Albumin 2.1 L (3.2-5.5) g/dL Globulin 2.9 (2.1-4.2) g/dL Albumin/Globulin Ratio 0.7 L (1.0-2.2) Lipase (22-51) U/L Vitamin B12 698 (180-914) pg/mL Folate > 49.60 (5.90 - >24.8) ng/mL TSH 0.40 (0.34-5.60) uIU/mL Blood Type Blood Type Recheck Antibody Screen Crossmatch IS Only 03/06/19 03/06/19 03/05/19 Range/Units 04:05 04:05 20:00 WBC (4.8-10.8) x10^3/uL RBC (4.70-6.10) 10^6/uL Hgb 6.4 L* (14.0-18.0) g/dL Hct 19.9 L* (42.0-52.0) % MCV (80.0-94.0) fL MCH (27.0-31.0) pg MCHC (32.0-36.0) g/dL RDW (12.0-15.0) % Plt Count (130-450) 10^3/uL MPV (7.4-11.4) fL Neut # (Auto) (1.5-6.6) 10^3/uL Lymph # (Auto) (1.5-3.5) 10^3/uL Lyman # (Auto) (0.0-1.0) 10^3/uL Eos # (Auto) (0.0-0.7) 10^3/uL Baso # (Auto) (0.0-0.1) 10^3/uL Absolute Nucleated RBC x10^3/uL Nucleated RBC % /100WBC Manual Slide Review WBC Morphology (NORMAL) Platelet Estimate (NORMAL) Platelet Morphology (NORMAL) RBC Morph Micro Appear (NORMAL) PT (9.9-12.6) secs INR (0.8-1.2) APTT (24.9-33.3) secs Sodium (135-145) mmol/L Potassium (3.5-5.0) mmol/L Chloride (101-111) mmol/L Carbon Dioxide (21-32) mmol/L Anion Gap (6-13) BUN (6-20) mg/dL Creatinine (0.6-1.2) mg/dL Estimated GFR (MDRD) (>89) Glucose (70-100) mg/dL Glycated Hemoglobin (4.6-6.2) % Estim Average Glucose (70-100) Calcium (8.5-10.3) mg/dL Magnesium (1.7-2.8) mg/dL Iron 14 L (45-182) ug/dL TIBC 115 L (250-450) ug/dL % Saturation 12 L (20-50) % Transferrin 82 L (180-329) mg/dL Total Bilirubin (0.2-1.0) mg/dL AST (10-42) IU/L ALT (10-60) IU/L Alkaline Phosphatase (42-121) IU/L B-Natriuretic Peptide (5-100) pg/mL Total Protein (6.7-8.2) g/dL Albumin (3.2-5.5) g/dL Globulin (2.1-4.2) g/dL Albumin/Globulin Ratio (1.0-2.2) Lipase (22-51) U/L Vitamin B12 (180-914) pg/mL Folate (5.90 - >24.8) ng/mL TSH (0.34-5.60) uIU/mL Blood Type Blood Type Recheck O POSITIVE Antibody Screen Crossmatch IS Only 06/03/05/19 03/05/19 Range/Units 19:38 19:38 19:35 WBC (4.8-10.8) x10^3/uL RBC (4.70-6.10) 10^6/uL Hgb (14.0-18.0) g/dL Hct (42.0-52.0) % MCV (80.0-94.0) fL MCH (27.0-31.0) pg MCHC (32.0-36.0) g/dL RDW (12.0-15.0) % Plt Count (130-450) 10^3/uL MPV (7.4-11.4) fL Neut # (Auto) (1.5-6.6) 10^3/uL Lymph # (Auto) (1.5-3.5) 10^3/uL Lyman # (Auto) (0.0-1.0) 10^3/uL Eos # (Auto) (0.0-0.7) 10^3/uL Baso # (Auto) (0.0-0.1) 10^3/uL Absolute Nucleated RBC x10^3/uL Nucleated RBC % /100WBC Manual Slide Review WBC Morphology (NORMAL) Platelet Estimate (NORMAL) Platelet Morphology (NORMAL) RBC Morph Micro Appear (NORMAL) PT (9.9-12.6) secs INR (0.8-1.2) APTT (24.9-33.3) secs Sodium 142 (135-145) mmol/L Potassium 4.0 (3.5-5.0) mmol/L Chloride 106 (101-111) mmol/L Carbon Dioxide 26 (21-32) mmol/L Anion Gap 10.0 (6-13) BUN 29 H (6-20) mg/dL Creatinine 1.1 (0.6-1.2) mg/dL Estimated GFR (MDRD) 63 L (>89) Glucose 141 H (70-100) mg/dL Glycated Hemoglobin 5.9 (4.6-6.2) % Estim Average Glucose 123 H (70-100) Calcium 8.3 L (8.5-10.3) mg/dL Magnesium (1.7-2.8) mg/dL Iron (45-182) ug/dL TIBC (250-450) ug/dL % Saturation (20-50) % Transferrin (180-329) mg/dL Total Bilirubin 0.6 (0.2-1.0) mg/dL AST 24 (10-42) IU/L ALT 16 (10-60) IU/L Alkaline Phosphatase 53 (42-121) IU/L B-Natriuretic Peptide 158 H (5-100) pg/mL Total Protein 6.2 L (6.7-8.2) g/dL Albumin 2.7 L (3.2-5.5) g/dL Globulin 3.5 (2.1-4.2) g/dL Albumin/Globulin Ratio 0.8 L (1.0-2.2) Lipase 35 (22-51) U/L Vitamin B12 (180-914) pg/mL Folate (5.90 - >24.8) ng/mL TSH (0.34-5.60) uIU/mL Blood Type Blood Type Recheck Antibody Screen Crossmatch IS Only 03/05/19 03/05/19 03/05/19 Range/Units 19:35 19:35 19:35 WBC 6.2 (4.8-10.8) x10^3/uL RBC 2.31 L (4.70-6.10) 10^6/uL Hgb 8.0 L (14.0-18.0) g/dL Hct 25.3 L (42.0-52.0) % MCV 109.5 H (80.0-94.0) fL MCH 34.6 H (27.0-31.0) pg MCHC 31.6 L (32.0-36.0) g/dL RDW 16.0 H (12.0-15.0) % Plt Count 238 (130-450) 10^3/uL MPV 9.6 (7.4-11.4) fL Neut # (Auto) 5.1 (1.5-6.6) 10^3/uL Lymph # (Auto) 0.6 L (1.5-3.5) 10^3/uL Lyman # (Auto) 0.4 (0.0-1.0) 10^3/uL Eos # (Auto) 0.0 (0.0-0.7) 10^3/uL Baso # (Auto) 0.0 (0.0-0.1) 10^3/uL Absolute Nucleated RBC 0.00 x10^3/uL Nucleated RBC % 0.0 /100WBC Manual Slide Review WBC Morphology (NORMAL) Platelet Estimate (NORMAL) Platelet Morphology (NORMAL) RBC Morph Micro Appear (NORMAL) PT 12.7 H (9.9-12.6) secs INR 1.1 (0.8-1.2) APTT 24.0 L (24.9-33.3) secs Sodium (135-145) mmol/L Potassium (3.5-5.0) mmol/L Chloride (101-111) mmol/L Carbon Dioxide (21-32) mmol/L Anion Gap (6-13) BUN (6-20) mg/dL Creatinine (0.6-1.2) mg/dL Estimated GFR (MDRD) (>89) Glucose (70-100) mg/dL Glycated Hemoglobin (4.6-6.2) % Estim Average Glucose (70-100) Calcium (8.5-10.3) mg/dL Magnesium (1.7-2.8) mg/dL Iron (45-182) ug/dL TIBC (250-450) ug/dL % Saturation (20-50) % Transferrin (180-329) mg/dL Total Bilirubin (0.2-1.0) mg/dL AST (10-42) IU/L ALT (10-60) IU/L Alkaline Phosphatase (42-121) IU/L B-Natriuretic Peptide (5-100) pg/mL Total Protein (6.7-8.2) g/dL Albumin (3.2-5.5) g/dL Globulin (2.1-4.2) g/dL Albumin/Globulin Ratio (1.0-2.2) Lipase (22-51) U/L Vitamin B12 (180-914) pg/mL Folate (5.90 - >24.8) ng/mL TSH (0.34-5.60) uIU/mL Blood Type O POSITIVE Blood Type Recheck Antibody Screen NEGATIVE Crossmatch IS Only See Detail Impression and Recommendations - Palliative Care Impression: This is an 88-year-old gentleman who presents acutely with GI bleed, d ehydration, and second hospitalization with an 2 weeks. Patient underlying diagnoses include recurrent Nicole cell carcinoma, and current treatment plan in place with follow-up plan for neutron therapy and possible immunotherapy. Patient has significant underlying comorbidities including dementia that may impact future decision making. Palliative care to continue provide support and anticipatory guidance. Recommendations/Counseling Done: 1. Anemia, multifactorial in origin. Patient currently receiving blood transfusions. Planned endoscopy tomorrow, did prepare given so far no underlying etiology regarding his latest hospitalization for gastroenteritis, ma y not have any definitive answers. Patient remains quite frail, will await outcome of EGD. 2. Recurrent Nicole cell carcinoma. Patient still with 2 active lesions, scheduled next Sunday and Sunday for neutron therapy. Encouraged if possible, given the rapid growth of these lesions, to follow-up if patient able. Awaiting outcome regarding if patient to receive immunotherapy this round, had progressed on the Keytruda previously received. Counseling provided and support regarding the complexity of the decision making regarding this given his frail status. 3. Advanced care planning. Patient does have a POLST in place with DNA R/selective treatments. Goals are to weigh benefits and burdens of decisions and interventions in the context of quality of life. Palliative care provide support, will continue on the outpatient setting.Counseling provided regarding the continuum of care including alignment in the future if considering transition to hospice. Time Spent: 60 minutes with getting 50% of this done in counseling regarding goals of care, continuum of care, addressed concerns regarding caregiver fatigue and respite needs, and anticipatory guidance
--- NOTE | 2019-03-06 14:13 | PROVIDER PROGRESS NOTE ---
Subjective - Prog Note Date Prog Note Date: 03/06/19 - Subjective Pt reports feeling: No change Subjective: pt is comfortably sleeping at the bed. His report pt has no hematemesis since pt was admitted. she report pt had once large of hematemesis at home. Current Medications - Current Medications Current Medications: Active Medications Ferrous Sulfate (Feosol) 325 mg PO BIDWM [facility] Furosemide (Lasix Inj 20mg Vial) 20 mg IVP ONCE PRN PRN Reason: Between units Stop: 03/07/19 04:43 Last Admin: 03/06/19 11:27 Dose: 20 mg Potassium Chloride/Dextrose/Sod Cl () 1,000 mls @ 125 mls/hr IV .Q8H [facility] Last Infusion: 03/06/19 08:39 Dose: Infused Insulin Human Regular (Novolin R) 1 - 5 unit SUBQ Q6HR [facility]; Protocol Last Admin: 03/06/19 13:52 Dose: Not Given Nitroglycerin (Nitrostat) 0.4 mg SL Q5MIN PRN PRN Reason: Chest Pain Ondansetron HCl (Zofran Inj) 4 mg IVP Q6HR PRN PRN Reason: Nausea / Vomiting Pantoprazole Sodium (Protonix) 40 mg IVP BID [facility] Last Admin: 03/06/19 11:27 Dose: 40 mg Polyethylene Glycol (Miralax) 17 gm PO DAILY [facility] Last Admin: 03/06/19 09:06 Dose: Not Given Prochlorperazine Edisylate (Compazine Inj) 10 mg IVP Q6HR PRN PRN Reason: Nausea / Vomiting Sodium Chloride (Normal Saline Flush 0.9%) 10 ml IVP PRN PRN PRN Reason: NEEDED PER PROVIDER ORDERS Last Admin: 03/06/19 11:27 Dose: 50 ml Sodium Chloride (Normal Saline Flush 0.9%) 10 ml IVP 0100,0900,1700 [facility] Last Admin: 03/06/19 11:27 Dose: 10 ml Allopurinol 300 mg PO DAILY 03/02/14 Ascorbate Calcium [Vitamin C] 500 mg PO DAILY 03/02/14 Atorvastatin Calcium [Lipitor] 40 mg PO DAILY 03/02/14 Cyanocobalamin (Vitamin B-12) [Vitamin B-12] 500 mcg PO DAILY 03/02/14 Multivitamin [Multivitamins] 1 each PO DAILY 03/02/14 glipiZIDE [Glucotrol] 2.5 mg PO DAILY 03/02/14 raNITIdine [Zantac] 150 mg PO BID 03/02/14 Aspirin [Adult Low Dose Aspirin EC] 81 mg PO DAILY 02/22/15 Escitalopram [Lexapro] 10 mg PO DAILY 02/28/16 Cholecalciferol (Vitamin D3) [Vitamin D] 2,000 unit PO DAILY 05/21/17 Objective - Vital Signs/Intake & Output Reviewed Vital Signs: Yes Vital Signs: Vital Signs x48h Temp Pulse Pulse Resp BP BP Pulse Ox 03/06/19 12:13 36.9 C 71 18 107/51 L 03/06/19 11:54 36.7 C 64 18 115/50 L 03/06/19 11:25 36.7 C 67 16 118/55 L 03/06/19 08:54 36.9 C 71 18 121/47 L 03/06/19 08:33 37.0 C 72 18 127/57 L 03/06/19 06:46 36.8 C 72 16 120/54 L 96 Intake & Output: Intake & Output 03/03/19 03/04/19 03/05/19 03/06/19 23:59 23:59 23:59 23:59 Intake Total 1300 Balance 1300 - Objective General Appearance: positive: No acute distress, Alert. negative: Lethargic Eyes Bilateral: positive: Normal inspection, PERRL, No lid inflammation, Conjunctivae nml ENT: positive: ENT inspection nml, Pharynx nml, No signs of dehydration. negative: Purulent nasal drainage, Pharyngeal erythema, Oral lesions Neck: positive: Nml inspection, Thyroid nml, No JVD, Trachea midline. negative: Thyromegaly, Lymphadenopathy (R), Lymphadenopathy (L), Stiff neck, Swelling/bruising, Tracheal deviation Respiratory: positive: Chest non-tender, No respiratory distress, Breath sounds nml. negative: Wheezes, Rales, Rhonchi Cardiovascular: positive: Regular rate & rhythm, No murmur, No gallop. negative: Irregularly irregular, Extrasystoles, Tachycardia, Bradycardia, JVD present, Systolic murmur, Diastolic murmur Peripheral Pulses: 2+ Radial (R), 2+ Radial (L), 2+ Dorsalis pedis (R), 2+ Dorsalis pedis (L) Abdomen: positive: Non-tender, No organomegaly, Nml bowel sounds, No distention. negative: Tenderness, Guarding, Rebound Back: positive: Nml inspection. negative: CVA tenderness (R), CVA tenderness (L) Skin: positive: Warm, Dry. negative: Cyanosis, Diaphoresis, Pallor Extremities: positive: Non-tender. negative: Calf tenderness, Joint swelling, Star's sign/cords Neurologic/Psychiatric: negative: Sensory loss, Facial droop - Lab Results Fish Bones: 03/06/19 04:05 03/06/19 09:19 Other Labs: Lab Results x24hrs 03/06/19 03/06/19 03/06/19 Range/Units 09:19 04:05 04:05 WBC 13.2 H (4.8-10.8) x10^3/uL RBC 1.82 L (4.70-6.10) 10^6/uL Hgb 6.4 L* (14.0-18.0) g/dL Hct 20.0 L* (42.0-52.0) % MCV 109.9 H (80.0-94.0) fL MCH 35.2 H (27.0-31.0) pg MCHC 32.0 (32.0-36.0) g/dL RDW 16.5 H (12.0-15.0) % Plt Count 209 (130-450) 10^3/uL MPV 10.5 (7.4-11.4) fL Neut # (Auto) 10.6 H (1.5-6.6) 10^3/uL Lymph # (Auto) 1.4 L (1.5-3.5) 10^3/uL Will # (Auto) 1.0 (0.0-1.0) 10^3/uL Eos # (Auto) 0.2 (0.0-0.7) 10^3/uL Baso # (Auto) 0.0 (0.0-0.1) 10^3/uL Absolute Nucleated RBC 0.00 x10^3/uL Nucleated RBC % 0.0 /100WBC Manual Slide Review Indicated WBC Morphology 1+ VACUOLATION (NORMAL) Platelet Estimate NORMAL (130-450,000) (NORMAL) Platelet Morphology NORMAL APPEARANCE (NORMAL) RBC Morph Micro Appear 3+ HYPOCHROMASIA (NORMAL) PT (9.9-12.6) secs INR (0.8-1.2) APTT (24.9-33.3) secs Sodium 140 (135-145) mmol/L Potassium 3.9 (3.5-5.0) mmol/L Chloride 111 (101-111) mmol/L Carbon Dioxide 25 (21-32) mmol/L Anion Gap 4.0 L (6-13) BUN 27 H (6-20) mg/dL Creatinine 1.0 (0.6-1.2) mg/dL Estimated GFR (MDRD) 71 L (>89) Glucose 122 H (70-100) mg/dL Glycated Hemoglobin (4.6-6.2) % Estim Average Glucose (70-100) Calcium 7.8 L (8.5-10.3) mg/dL Magnesium 1.5 L (1.7-2.8) mg/dL Iron (45-182) ug/dL TIBC (250-450) ug/dL % Saturation (20-50) % Transferrin (180-329) mg/dL Total Bilirubin 0.7 (0.2-1.0) mg/dL AST 21 (10-42) IU/L ALT 14 (10-60) IU/L Alkaline Phosphatase 37 L (42-121) IU/L B-Natriuretic Peptide (5-100) pg/mL Total Protein 5.0 L (6.7-8.2) g/dL Albumin 2.1 L (3.2-5.5) g/dL Globulin 2.9 (2.1-4.2) g/dL Albumin/Globulin Ratio 0.7 L (1.0-2.2) Lipase (22-51) U/L Vitamin B12 698 (180-914) pg/mL Folate > 49.60 (5.90 - >24.8) ng/mL TSH 0.40 (0.34-5.60) uIU/mL Blood Type Blood Type Recheck Antibody Screen Crossmatch IS Only 03/06/19 03/06/19 03/05/19 Range/Units 04:05 04:05 20:00 WBC (4.8-10.8) x10^3/uL RBC (4.70-6.10) 10^6/uL Hgb 6.4 L* (14.0-18.0) g/dL Hct 19.9 L* (42.0-52.0) % MCV (80.0-94.0) fL MCH (27.0-31.0) pg MCHC (32.0-36.0) g/dL RDW (12.0-15.0) % Plt Count (130-450) 10^3/uL MPV (7.4-11.4) fL Neut # (Auto) (1.5-6.6) 10^3/uL Lymph # (Auto) (1.5-3.5) 10^3/uL Will # (Auto) (0.0-1.0) 10^3/uL Eos # (Auto) (0.0-0.7) 10^3/uL Baso # (Auto) (0.0-0.1) 10^3/uL Absolute Nucleated RBC x10^3/uL Nucleated RBC % /100WBC Manual Slide Review WBC Morphology (NORMAL) Platelet Estimate (NORMAL) Platelet Morphology (NORMAL) RBC Morph Micro Appear (NORMAL) PT (9.9-12.6) secs INR (0.8-1.2) APTT (24.9-33.3) secs Sodium (135-145) mmol/L Potassium (3.5-5.0) mmol/L Chloride (101-111) mmol/L Carbon Dioxide (21-32) mmol/L Anion Gap (6-13) BUN (6-20) mg/dL Creatinine (0.6-1.2) mg/dL Estimated GFR (MDRD) (>89) Glucose (70-100) mg/dL Glycated Hemoglobin (4.6-6.2) % Estim Average Glucose (70-100) Calcium (8.5-10.3) mg/dL Magnesium (1.7-2.8) mg/dL Iron 14 L (45-182) ug/dL TIBC 115 L (250-450) ug/dL % Saturation 12 L (20-50) % Transferrin 82 L (180-329) mg/dL Total Bilirubin (0.2-1.0) mg/dL AST (10-42) IU/L ALT (10-60) IU/L Alkaline Phosphatase (42-121) IU/L B-Natriuretic Peptide (5-100) pg/mL Total Protein (6.7-8.2) g/dL Albumin (3.2-5.5) g/dL Globulin (2.1-4.2) g/dL Albumin/Globulin Ratio (1.0-2.2) Lipase (22-51) U/L Vitamin B12 (180-914) pg/mL Folate (5.90 - >24.8) ng/mL TSH (0.34-5.60) uIU/mL Blood Type Blood Type Recheck O POSITIVE Antibody Screen Crossmatch IS Only 03/05/19 03/05/19 03/05/19 Range/Units 19:38 19:38 19:35 WBC (4.8-10.8) x10^3/uL RBC (4.70-6.10) 10^6/uL Hgb (14.0-18.0) g/dL Hct (42.0-52.0) % MCV (80.0-94.0) fL MCH (27.0-31.0) pg MCHC (32.0-36.0) g/dL RDW (12.0-15.0) % Plt Count (130-450) 10^3/uL MPV (7.4-11.4) fL Neut # (Auto) (1.5-6.6) 10^3/uL Lymph # (Auto) (1.5-3.5) 10^3/uL Will # (Auto) (0.0-1.0) 10^3/uL Eos # (Auto) (0.0-0.7) 10^3/uL Baso # (Auto) (0.0-0.1) 10^3/uL Absolute Nucleated RBC x10^3/uL Nucleated RBC % /100WBC Manual Slide Review WBC Morphology (NORMAL) Platelet Estimate (NORMAL) Platelet Morphology (NORMAL) RBC Morph Micro Appear (NORMAL) PT (9.9-12.6) secs INR (0.8-1.2) APTT (24.9-33.3) secs Sodium 142 (135-145) mmol/L Potassium 4.0 (3.5-5.0) mmol/L Chloride 106 (101-111) mmol/L Carbon Dioxide 26 (21-32) mmol/L Anion Gap 10.0 (6-13) BUN 29 H (6-20) mg/dL Creatinine 1.1 (0.6-1.2) mg/dL Estimated GFR (MDRD) 63 L (>89) Glucose 141 H (70-100) mg/dL Glycated Hemoglobin 5.9 (4.6-6.2) % Estim Average Glucose 123 H (70-100) Calcium 8.3 L (8.5-10.3) mg/dL Magnesium (1.7-2.8) mg/dL Iron (45-182) ug/dL TIBC (250-450) ug/dL % Saturation (20-50) % Transferrin (180-329) mg/dL Total Bilirubin 0.6 (0.2-1.0) mg/dL AST 24 (10-42) IU/L ALT 16 (10-60) IU/L Alkaline Phosphatase 53 (42-121) IU/L B-Natriuretic Peptide 158 H (5-100) pg/mL Total Protein 6.2 L (6.7-8.2) g/dL Albumin 2.7 L (3.2-5.5) g/dL Globulin 3.5 (2.1-4.2) g/dL Albumin/Globulin Ratio 0.8 L (1.0-2.2) Lipase 35 (22-51) U/L Vitamin B12 (180-914) pg/mL Folate (5.90 - >24.8) ng/mL TSH (0.34-5.60) uIU/mL Blood Type Blood Type Recheck Antibody Screen Crossmatch IS Only 03/05/19 03/05/19 03/05/19 Range/Units 19:35 19:35 19:35 WBC 6.2 (4.8-10.8) x10^3/uL RBC 2.31 L (4.70-6.10) 10^6/uL Hgb 8.0 L (14.0-18.0) g/dL Hct 25.3 L (42.0-52.0) % MCV 109.5 H (80.0-94.0) fL MCH 34.6 H (27.0-31.0) pg MCHC 31.6 L (32.0-36.0) g/dL RDW 16.0 H (12.0-15.0) % Plt Count 238 (130-450) 10^3/uL MPV 9.6 (7.4-11.4) fL Neut # (Auto) 5.1 (1.5-6.6) 10^3/uL Lymph # (Auto) 0.6 L (1.5-3.5) 10^3/uL Will # (Auto) 0.4 (0.0-1.0) 10^3/uL Eos # (Auto) 0.0 (0.0-0.7) 10^3/uL Baso # (Auto) 0.0 (0.0-0.1) 10^3/uL Absolute Nucleated RBC 0.00 x10^3/uL Nucleated RBC % 0.0 /100WBC Manual Slide Review WBC Morphology (NORMAL) Platelet Estimate (NORMAL) Platelet Morphology (NORMAL) RBC Morph Micro Appear (NORMAL) PT 12.7 H (9.9-12.6) secs INR 1.1 (0.8-1.2) APTT 24.0 L (24.9-33.3) secs Sodium (135-145) mmol/L Potassium (3.5-5.0) mmol/L Chloride (101-111) mmol/L Carbon Dioxide (21-32) mmol/L Anion Gap (6-13) BUN (6-20) mg/dL Creatinine (0.6-1.2) mg/dL Estimated GFR (MDRD) (>89) Glucose (70-100) mg/dL Glycated Hemoglobin (4.6-6.2) % Estim Average Glucose (70-100) Calcium (8.5-10.3) mg/dL Magnesium (1.7-2.8) mg/dL Iron (45-182) ug/dL TIBC (250-450) ug/dL % Saturation (20-50) % Transferrin (180-329) mg/dL Total Bilirubin (0.2-1.0) mg/dL AST (10-42) IU/L ALT (10-60) IU/L Alkaline Phosphatase (42-121) IU/L B-Natriuretic Peptide (5-100) pg/mL Total Protein (6.7-8.2) g/dL Albumin (3.2-5.5) g/dL Globulin (2.1-4.2) g/dL Albumin/Globulin Ratio (1.0-2.2) Lipase (22-51) U/L Vitamin B12 (180-914) pg/mL Folate (5.90 - >24.8) ng/mL TSH (0.34-5.60) uIU/mL Blood Type O POSITIVE Blood Type Recheck Antibody Screen NEGATIVE Crossmatch IS Only See Detail ABX Reporting Has patient been on IV antibiotics over the past 48 hours?: No Sepsis Event Note (H) - Evaluation Current Stage of Sepsis: Ruled out Assessment/Plan - Problem List (1) Upper gastrointestinal bleed Impression: 1. hematemesis pt's report pt had a large vomited blood. pt's HGB is 6.4. will transfusion of two unit of blood consulted with GI surgeon, will have scopy on tomorrow, per GI surgeon the etiology can be Boerhaave's versus Karrie-Murrieta tear or esophageal variceal bleed, carcinoma-caused bleed H&H 2. anemia HGB is 6.4, it appear from acute GI blood loss blood transfusion lab monitor 3. BL Edema pt has hx of three kind of cancer, on Keytruda chemotherapy. denies. continue Lasix, and lab monitor 4. 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 5. 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 CKD stage 3 stable 8. HLP -stable 9. JOSELYN on CPAP -Resume CPAP 10. 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 CAD with CABG stable, contiinue home Aspirin continue tele and vital monitor
[2019-03-06] MEDS: D5NS W/20 MEQ KCL 1,000 ML IV SCH (14:57)
[2019-03-06 16:14] LABS: HGB - HEMOGLOBIN 8.6 g/dL (14.0-18.0)
[2019-03-06] MEDS: FERROUS SULFATE 325 MG TABLET PO SCH (18:04)
[2019-03-06 18:13] LABS: HGB - HEMOGLOBIN 8.7 g/dL (14.0-18.0)
[2019-03-06 20:30] LABS: BILIRUBIN,URINE NEGATIVE (NEGATIVE); GLUCOSE, URINE (UA) NEGATIVE (NEGATIVE); KETONES,URINE (UA) NEGATIVE (NEGATIVE); LEUKOCYTE ESTERASE, URINE NEGATIVE (NEGATIVE); NITRITE,URINE NEGATIVE (NEGATIVE); OCCULT BLOOD,URINE TRACE-LYSE (NEGATIVE); PH,URINE 5.5 PH (5.0-7.5); PROTEIN,URINE NEGATIVE (NEGATIVE); UROBILINOGEN,URINE 0.2 (NORMAL) E.U./dL (NORMAL)
[2019-03-06 20:36] LABS: CLARITY,URINE CLEAR (CLEAR)
--- NOTE | 2019-03-06 21:58 | ADVANCE CARE PLANNING NOTE ---
Advance Care Planning - Date/Time Date: 03/05/19 Time: 23:00 - Purpose of encounter Text: To establish goals of care in regards to patient's complicated medical conditions that fall in line with patient's personal values and beliefs. - Parties in attendance Parties in attendance: Patient's POA and family member - Decisional capacity Decisional capacity of: Patient has dementia and has poor decisional making capacity - Subjective/Patient's story Subjective/Patient's story: Patient talks in brief sentences and understands simple commands and his overall care but at times forgets. States he feels weak and mentions falling at times. Lives at home with spouse. Patient and have been over 30 years, they came out to the [place] at the point of time that they retired. 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 [place], he does have 4 children, she has a son. 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 They have very helpful neighbors, that often come over and help when patient has had falls. She has been trying to get some assistance in the home, has met with senior services, has 26 hours allotted but has not been able to find caregivers. She has been paying someone privately. She herself is trying to arrange for some support so she can have surgery on her feet. Patient has had a series of unfortunate and continued events. They are very close despite his dementia, she is quite willing to be caregiver, but does need some respite and a long-term plan. - Objective/Medical story Objective/Medical Story: This is an 88-year-old gentleman with complicated history. 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 Area had filled right neck, now it is faded pink. He does have 2 active lesions currently on his chin and to the right of his cheek, about quarter size. She reports these are enlarging fairly rapidly. The plan is to have neutron therapy again on Sunday and Sunday, as it has responded well before. He is being followed by [facility], sketch maker is looking at starting him on ipilimumab. They are waiting on final insurance approval and final plan regarding this. Patient did receive Keytruda with progression last fall. Most acutely patient was admitted for [facility] last week, with severe and profuse diarrhea. He was there for almost a week, with no underlying etiology other than most likely viral. They had returned home, was doing fairly well, until Sunday where he went had not had happened was he had a seizure. He was identified as a syncopal event, and was discharged after CT scan of the head was unremarkable. They had returned home, and then he had a large emesis coffee grounds, now he presents with severe anemia, is currently receiving transfusion. He has not had earlier GI bleeds, the plan is for endoscopy tomorrow. Patient also had hip fracture this year, this was in late November, he was discharged at that time to [facility] for rehab. Has been followed after that by [facility], and then on to outpatient therapy. In January he had an acute episode where he choked, and remains at high risk for aspiration, though some of his behaviors have improved regarding this. Patient does have dementia, his symptoms have been progressive, he is quite pleasant, but does need cueing, supervision, and has very little insight into his current situation. is been managing his care and multiple appointments as well as trying to access more caregiving support.Palliative care has seen them for a couple visits, patient has been getting active treatment, with the plan to follow-up after therapies completed. Patient's past medical history also includes diabetes type 2, CLL diagnosed in August 2015 with [place] treatments to 2016. History of hepatitis, quadruple bypass, right knee repair, and left knee replacement. 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 His original Nicole cell carcinoma was diagnosed 2016 on the forehead, with surgery and flap, with neutron radiation to the right cheek, right eyebrow, followed by Keytruda immunotherapy. He had neutron radiation to the right chin and jaw June 2018. As well as a fractured left hip with nails and screws inserted December 2018. - Goals of Care Goals of care determinations: Goals of determinations established with and will discuss further with palliative care service - Plan Plan: Discussion with when patient was over at [facility] with hospice recommendations.Counseling provided regarding goals of care, reviewed patient most likely would meet criteria, if he chose no further treatment. Per Palliative Care: Reviewed the criteria hospice is 6 months or less given the natural course of the disease, but also goals need to be comfort focused, which means no further treatment, would not include pursuing immunotherapy, and no fur ther hospitalizations. She does recognize he is frail, and the seriousness of his illness, but they are hoping to at least be able to complete the neutron therapy. There is also the unknown of his current acute issues that brought him in to the hospital. Goals have been to focus on comfort, but still at this point in time treat reversible conditions, and continue to weigh benefits and burdens moving forward. Patient did participate in the POLST conversation previously, DNA R/selective treatments were selected with a cosigned by . We discussed in the context of future goals, needing to have further information regarding his current acute stay. Can continue to weigh benefits of burdens of treatments moving forward, including consideration of immunotherapy. At this point time his quality of life has improved, is unclear if they would transition to hospice unless he deteriorated or further diagnoses with endoscopy tomorrow may influence decision. Palliative care to continue provide support regarding ongoing treatment and treatment goals. - Time Spent on Advance Care Planning Time spent on advance care plannin
[2019-03-07] MEDS: D5NS W/20 MEQ KCL 1,000 ML IV SCH (01:08)
[2019-03-07 07:19] LABS: BASOPHILS % (AUTO) 0.3 %; EOSINOPHILS % (AUTO) 19.5 %; HGB - HEMOGLOBIN 8.9 g/dL (14.0-18.0); LYMPHOCYTES % (AUTO) 17.9 %; MEAN CORPUSCULAR HEMOGLOBIN 33.2 pg (27.0-31.0); MEAN CORPUSCULAR HGB CONC 33.1 g/dL (32.0-36.0); MEAN CORPUSCULAR VOLUME 100.4 fL (80.0-94.0); MEAN PLATELET VOLUME 9.6 fL (7.4-11.4); NEUTROPHILS % (AUTO) 52.8 %; PLT - PLATELET COUNT 201 10^3/uL (130-450); RED BLOOD COUNT 2.68 10^6/uL (4.70-6.10); RED CELL DISTRIBUTION WIDTH 22.7 % (12.0-15.0); WHITE BLOOD COUNT 7.9 x10^3/uL (4.8-10.8)
[2019-03-07 07:21] LABS: ABNORMAL LYMPHS % (MANUAL) 0 %
[2019-03-07 07:35] LABS: ALBUMIN 2.3 g/dL (3.2-5.5); ALBUMIN/GLOBULIN RATIO 0.7 (1.0-2.2); BILIRUBIN,TOTAL 0.8 mg/dL (0.2-1.0); CREATININE 1.1 mg/dL (0.6-1.2); TOTAL PROTEIN 5.4 g/dL (6.7-8.2)
[2019-03-07 07:47] LABS: BAND NEUTROPHILS % (MANUAL) 1 %; BASOPHILS # (MANUAL) 0.1 10^3/uL (0-0.1); BASOPHILS % (MANUAL) 1 %; EOSINOPHILS # (MANUAL) 1.1 10^3/uL (0-0.7); LYMPHOCYTES # (MANUAL) 1.4 10^3/uL (1.5-3.5); LYMPHOCYTES % (MANUAL) 18 %; MONOCYTES # (MANUAL) 0.3 10^3/uL (0.0-1.0); NEUTROPHILS % (MANUAL) 62 %
[2019-03-07 07:51] LABS: DIFFERENTIAL COMMENT MANUAL DIFFERENTIAL; PLATELET ESTIMATE, MANUAL NORMAL (130-450,000) (NORMAL); PLATELET MORPHOLOGY NORMAL APPEARANCE (NORMAL)
[2019-03-07] MEDS: SODIUM CHLORIDE FLUSH 0.9% 10 ML SYRINGE IVP SCH ×2 (08:04→10:17)
[2019-03-07] MEDS: INSULIN REGULAR HUMAN 100 UNIT/1 ML 10 ML MDV SUBQ SCH ×2 (08:05→12:49)
[2019-03-07] MEDS: SODIUM CHLORIDE FLUSH 0.9% 10 ML SYRINGE IVP PRN (10:17)
[2019-03-07] MEDS: PANTOPRAZOLE 40 MG VIAL IVP SCH (10:17)
[2019-03-07] MEDS: POLYETHYLENE GLYCOL 3350 17 GM PACKET PO SCH (10:17)
[2019-03-07] MEDS ORDERED: SODIUM CHLORIDE 0.9% 1,000 ML IV SCH (11:00)
--- NOTE | 2019-03-07 11:44 | ANESTHESIA ---
Pre-Anesthesia VS, & Labs - Diagnosis GI Bleeding - Procedure EGD Vital Signs: Temp Pulse Resp BP Pulse Ox 36.5 C 63 16 139/52 H 94 03/07/19 08:00 03/07/19 08:00 03/07/19 08:00 03/07/19 08:00 03/07/19 08:00 Height 5 ft 9 in Weight (kg) 77 kg Body Mass Index 25.0 - NPO >8 hours - Lab Results Current Lab Results: Laboratory Tests 03/07/19 07:06: Sodium 142, Potassium 4.0, Chloride 108, Carbon Dioxide 26, Anion Gap 8.0, BUN 20, Creatinine 1.1, Estimated GFR (MDRD) 63 L, Glucose 133 H, Calcium 8.0 L, Total Bilirubin 0.8, AST 25, ALT 15, Alkaline Phosphatase 46, Total Protein 5.4 L, Albumin 2.3 L, Globulin 3.1, Albumin/Globulin Ratio 0.7 L 03/07/19 07:06: WBC 7.9, RBC 2.68 L, Hgb 8.9 L, Hct 26.9 L, MCV 100.4 H, MCH 33.2 H, MCHC 33.1, RDW 22.7 H, Plt Count 201, MPV 9.6, Neut # (Auto) Not Reportable, Lymph # (Auto) Not Reportable, [place] # (Auto) Not Reportable, Eos # (Auto) Not Reportable, Baso # (Auto) Not Reportable, Absolute Nucleated RBC Not Reportable, Total Counted 100, Band Neuts % (Manual) 1, Abnorm Lymph % (Manual) 0, Nucleated RBC % Not Reportable, Neutrophils # (Manual) 5.0, Lymphocytes # (Manual) 1.4 L, Monocytes # (Manual) 0.3, Eosinophils # (Manual) 1.1 H, Basophils # (Manual) 0.1, Differential Comment MANUAL DIFFERENTIAL, WBC Morphology NORMAL APPEARANCE, Platelet Estimate NORMAL (130-450,000), Platelet Morphology NORMAL APPEARANCE, RBC Morph Micro Appear 1+ POIKILOCYTOSIS 03/06/19 18:09: Hgb 8.7 L, Hct 27.0 L 03/06/19 16:10: Hgb 8.6 L, Hct 26.0 L 03/06/19 09:19: Sodium 140, Potassium 3.9, Chloride 111, Carbon Dioxide 25, Anion Gap 4.0 L, BUN 27 H, Creatinine 1.0, Estimated GFR (MDRD) 71 L, Glucose 122 H, Calcium 7.8 L, Magnesium 1.5 L, Total Bilirubin 0.7, AST 21, ALT 14, Alkaline Phosphatase 37 L, Total Protein 5.0 L, Albumin 2.1 L, Globulin 2.9, Albumin/Globulin Ratio 0.7 L 03/06/19 04:05: WBC 13.2 H, RBC 1.82 L, Hgb 6.4 L*, Hct 20.0 L*, MCV 109.9 H, MCH 35.2 H, MCHC 32.0, RDW 16.5 H, Plt Count 209, MPV 10.5, Neut # (Auto) 10.6 H , Lymph # (Auto) 1.4 L, Radford # (Auto) 1.0, Eos # (Auto) 0.2, Baso # (Auto) 0.0, Absolute Nucleated RBC 0.00, Nucleated RBC % 0.0, Manual Slide Review Indicated, WBC Morphology 1+ VACUOLATION, Platelet Estimate NORMAL (130-450,000), Platelet Morphology NORMAL APPEARANCE, RBC Morph Micro Appear 3+ HYPOCHROMASIA 03/06/19 04:05: Vitamin B12 698, Folate > 49.60, TSH 0.40 03/06/19 04:05: Iron 14 L, TIBC 115 L, % Saturation 12 L, Transferrin 82 L 03/06/19 04:05: Hgb 6.4 L*, Hct 19.9 L* 03/05/19 20:00: Blood Type Recheck O POSITIVE 03/05/19 19:38: Glycated Hemoglobin 5.9, Estim Average Glucose 123 H 03/05/19 19:38: B-Natriuretic Peptide 158 H 03/05/19 19:35: Sodium 142, Potassium 4.0, Chloride 106, Carbon Dioxide 26, Anion Gap 10.0, BUN 29 H, Creatinine 1.1, Estimated GFR (MDRD) 63 L, Glucose 141 H, Calcium 8.3 L, Total Bilirubin 0.6, AST 24, ALT 16, Alkaline Phosphatase 53, Total Protein 6.2 L, Albumin 2.7 L, Globulin 3.5, Albumin/Globulin Ratio 0.8 L, Lipase 35 03/05/19 19:35: PT 12.7 H, INR 1.1, APTT 24.0 L 03/05/19 19:35: WBC 6.2, RBC 2.31 L, Hgb 8.0 L, Hct 25.3 L, MCV 109.5 H, MCH 34.6 H, MCHC 31.6 L, RDW 16.0 H, Plt Count 238, MPV 9.6, Neut # (Auto) 5.1, Lymph # (Auto) 0.6 L, Rad[place] # (Auto) 0.4, Eos # (Auto) 0.0, Baso # (Auto) 0.0, Absolute Nucleated RBC 0.00, Nucleated RBC % 0.0 03/05/19 19:35: Blood Type O POSITIVE, Antibody Screen NEGATIVE, Crossmatch IS Only See Detail Fish Bones: 03/07/19 07:06 03/07/19 07:06 Home Medications and Allergies Active Medications Ferrous Sulfate (Feosol) 325 mg PO BIDWM [facility] Last Admin: 03/06/19 18:04 Dose: 325 mg Sodium Chloride (Normal Saline 0.9%) 1,000 mls @ 75 mls/hr IV .[id number] [facility] Insulin Human Regular (Novolin R) 1 - 5 unit SUBQ Q6HR [facility]; Protocol Last Admin: 03/07/19 08:05 Dose: Not Given Nitroglycerin (Nitrostat) 0.4 mg SL Q5MIN PRN PRN Reason: Chest Pain Ondansetron HCl (Zofran Inj) 4 mg IVP Q6HR PRN PRN Reason: Nausea / Vomiting Pantoprazole Sodium (Protonix) 40 mg IVP BID [facility] Last Admin: 03/07/19 10:17 Dose: 40 mg Polyethylene Glycol (Miralax) 17 gm PO DAILY [facility] Last Admin: 03/07/19 10:17 Dose: Not Given Prochlorperazine Edisylate (Compazine Inj) 10 mg IVP Q6HR PRN PRN Reason: Nausea / Vomiting Sodium Chloride (Normal Saline Flush 0.9%) 10 ml IVP PRN PRN PRN Reason: NEEDED PER PROVIDER ORDERS Last Admin: 03/07/19 10:17 Dose: 20 ml Sodium Chloride (Normal Saline Flush 0.9%) 10 ml IVP 0100,0900,1700 [facility] Last Admin: 03/07/19 10:17 Dose: 10 ml Allopurinol 300 mg PO DAILY 03/02/14 Ascorbate Calcium [Vitamin C] 500 mg PO DAILY 03/02/14 Atorvastatin Calcium [Lipitor] 40 mg PO DAILY 03/02/14 Cyanocobalamin (Vitamin B-12) [Vitamin B-12] 500 mcg PO DAILY 03/02/14 Multivitamin [Multivitamins] 1 each PO DAILY 03/02/14 glipiZIDE [Glucotrol] 2.5 mg PO DAILY 03/02/14 raNITIdine [Zantac] 150 mg PO BID 03/02/14 Aspirin [Adult Low Dose Aspirin EC] 81 mg PO DAILY 02/22/15 Escitalopram [Lexapro] 10 mg PO DAILY 02/28/16 Cholecalciferol (Vitamin D3) [Vitamin D] 2,000 unit PO DAILY 05/21/17 Allergies/Adverse Reactions: Allergies Allergy/AdvReac Type Severity Reaction Status Date / Time amoxicillin [From Augmentin] Allergy Hallucinati Verified 03/05/19 10:06 ons azithromycin Allergy Hives Verified 03/05/19 10:06 clavulanic acid Allergy Hallucinati Verified 03/05/19 10:06 [From Augmentin] ons gentamicin Allergy Rash Verified 03/05/19 10:06 morphine Allergy Hallucinati Verified 03/05/19 10:06 ons prednisone Allergy Hallucinati Verified 03/05/19 10:06 ons narcotics AdvReac Hallucinati Uncoded 03/05/19 10:06 ons Anes History & Medical History - Anesthetic History Anesthesia Complications: reports: No previous complications - Medical History Cardiovascular: reports: Coronary artery disease, [place], Murmur Pulmonary: reports: None Gastrointestinal: reports: Other Neuro: reports: Dementia Musculoskeletal: reports: Osteoarthritis, Gout Endocrine/Autoimmune: reports: Type 2 diabetes Blood Disorders: reports: Anemia Smoking Status: Never smoker Other Past Medical History: swallowing difficulties - requires nectar thickened liquids - Surgical History Cardiothoracic: CABG Orthopedic: Other (Left hip ORIF) Exam General: Alert, Cooperative Dental: Poor dentition Mouth Openin Fingerbreadth Neck Mobility: Reduced Mallampati classification: III Thyromental Distance: greater than 6 cm Respiratory: Lungs clear, Normal breath sounds, No respiratory distress, No accessory muscle use Cardiovascular: Regular rate, Other (murmur) Mental/Cognitive Status: Normal for patient Plan Anesthesia Type: MAC Consent for Procedure(s) Verified and Reviewed: Yes Code Status: Attempt Resuscitation ASA classification: 3-Severe systemic disease Is this case an emergency?: No
[2019-03-07] MEDS ORDERED: LIDO GARGLE 30 ML BOTTLE ONE (12:18)
[2019-03-07] MEDS ORDERED: LACTATED RINGERS 500 ML IV ONE (12:28)
[2019-03-07] MEDS ORDERED: PROPOFOL 200 MG/20 ML VIAL IVP ONE (12:40)
--- NOTE | 2019-03-07 15:47 | Discharge Plan ---
Discharge Plan Problem Reviewed?: Yes Disposition: Home, Self Care Condition: Poor Prescriptions: Ferrous Sulfate 325 mg PO DAILY #15 tablet Omeprazole 40 mg PO BID #30 capsule. Sucralfate 1 gm PO TID #45 tablet Diet: Diabetic Activity Restrictions: Activity as Tolerated Shower Restrictions: No (fall precaution, caregiver closely monitor ) Instruction Topics: Bleeding Gastrointestinal, Esophageal Ulcer, Omeprazole tablets OTC, Sucralfate tablets Health Concerns: GI bleed, please avoid Non-steroid anti-inflammatory drug Plan of Treatment: await for biopsy result, no blood thinner, continue PPI -30 min before a meal, avoid non-steroid anti-inflammatory drugs, sucrafate tid. Care Goals: stabilization and heal of gastric ulcer Assessment: you has a EGD Additional Instructions or Follow Up instructions: you may followup your PCP in one week, followup Dr. Ocasio in 4-6 weeks. Should your symptoms return or worsen, you may present ER, call 911 or your PCP for help. No Smoking: If you smoke, Please STOP! Call for help. Follow-up with: Layla Levi MD [Provider Admit Priv/Credential] -
[2019-03-07] MEDS: FERROUS SULFATE 325 MG TABLET PO SCH (15:49)
[2019-03-07 15:55] VITALS: BP 133/59
[2019-03-07] MEDS ORDERED: SUCRALFATE 1 GM/10 ML UDC PO SCH (16:00)
--- NOTE | 2019-03-07 16:04 | DISCHARGE SUMMARY ---
"Discharge Summary Discharge Date: 03/07/19 Discharging Provider: ARMENDARIZ Primary Care Provider: Dr. Levi Condition at Discharge: Poor Discharge Disposition: 01 Home, Self Care Discharge Facility Name: home - DIAGNOSES Admission Diagnoses: 1. Acute symptomatic blood loss anemia secondary from possible upper GI bleed 2. Multifactorial anemia 3. BL Edema 4. 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 CLL s/p rituxan 2007 6. 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 CKD stage 3 8. HLP 9. 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 CAD with CABG 12. Advance Care planning and education/counseling Discharge Diagnoses with Status of Each Condition: 1. hematemesis stable, no more. Pt's HGB is continue steady and increase. Dr. Ocasio did EGD for pt. please reveals Dr. Ocasio's report. briefly pt was found to have multiple gastric ulcer. pt is prescribed PPI, sucralfate, follow up surgeon in 4-6 weeks, advise hold blood thinner, NSAIDs 2. anemia pt had transfusion of two blood unit. HGB is 8.9 stable. pt was found iron deficiency. iron is prescribe for pt 3. BL Edema stable, followup PCP and oncologist for management 4. 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 5. 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 CKD stage 3 stable 8. HLP -stable 9. 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 CAD with CABG stable, followup PCP and his emd teacher 12. CLL s/p rituxan 2007 followup his oncologist - HPI History of Present Illness: refer from Dr. 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 Borjas. Patient currently sees Dr. Peter at [facility], Radiation oncologist at [facility]. Patient had a left hip fracture and was repaired on 11/26 status post ORIF at [facility] with orthopedic service [facility]. Patient had an hospital admission to [facility] on 02/26 For acute viral gastroenteritis with associated diarrhea with negative C. difficile presumedly secondary to Keytruda or radiation. Patient had presented to the ED visit earlier for a syncopal event and was discharged with CT head being unremarkable. Patient presents now with vomiting (without nausea) of coffee-ground emesis. He has not had GI bleeding in the past. The family member present in ED said she inspected the vomitus and also perceived there was bright-red blood in the vomitus. On initial examination hemoglobin is 8.0 with patient's baseline running between 11.5 to 12.2 g/dL, last recent hemoglobin earlier in ED visit on 03/05 was 8.3 g/dL. Creatinine was 1.1 with prior baseline running between 1.1-1.6. Patient denied abdominal pain, diarrhea, MP rash, joint swelling, or GI symptoms. Guaic negative in ED, received IV PPI, Gen surgery called about possible Endoscopy, with 2 units T+S and transfuse first due to CAD/CABG hx with <8g/dl threshold. BLLE edema seen with 2+ pitting edema and no rales on exam. - CONSULTS | PROCEDURES Consultations: Dr Ocasio, GI surgeon Procedures: EGD - HOSPITAL COURSE Hospital Course: pt was admitted for hematemesis with severe anemia. pt had EGD done by GI surgeon, Dr. Ocasio. pt was found to have multiple gastric ulcers, pt's biopsy sample was sent out for test. pt had two unit of blood transfusion. after admission, pt has no more hematemesis. pt's HGB is stable and continue increase. pt was released by surgeon, advise pt followup surgeon in 4-6 weeks. pt was prescribed PPI and sucralfate, advise hold blood thinner, NSAIDs - ALLERGIES Allergies/Adverse Reactions: Allergies Allergy/AdvReac Type Severity Reaction Status Date / Time amoxicillin [From Augmentin] Allergy Hallucinati Verified 03/05/19 10:06 ons azithromycin Allergy Hives Verified 03/05/19 10:06 clavulanic acid Allergy Hallucinati Verified 03/05/19 10:06 [From Augmentin] ons gentamicin Allergy Rash Verified 03/05/19 10:06 morphine Allergy Hallucinati Verified 03/05/19 10:06 ons prednisone Allergy Hallucinati Verified 03/05/19 10:06 ons narcotics AdvReac Hallucinati Uncoded 03/05/19 10:06 ons - MEDICATIONS Home Medications: Ambulatory Orders Medication Instructions Recorded Confirmed Allopurinol 300 mg PO DAILY 03/02/14 03/06/19 Ascorbate Calcium [Vitamin C] 500 mg PO DAILY 03/02/14 03/06/19 Atorvastatin Calcium [Lipitor] 40 mg PO DAILY 03/02/14 03/06/19 Cyanocobalamin (Vitamin B-12) 500 mcg PO DAILY 03/02/14 03/06/19 [Vitamin B-12] Multivitamin [Multivitamins] 1 each PO DAILY 03/02/14 03/06/19 glipiZIDE [Glucotrol] 2.5 mg PO DAILY 03/02/14 03/06/19 raNITIdine [Zantac] 150 mg PO BID 03/02/14 03/06/19 Escitalopram [Lexapro] 10 mg PO DAILY 02/28/16 03/06/19 Cholecalciferol (Vitamin D3) 2,000 unit PO DAILY 05/21/17 03/06/19 [Vitamin D3] Ferrous Sulfate 325 mg PO DAILY #15 tablet 03/07/19 Omeprazole 40 mg PO BID #30 capsule. 03/07/19 Sucralfate 1 gm PO TID #45 tablet 03/07/19 - PHYSICAL EXAM AT DISCHARGE General Appearance: positive: No acute distress, Alert. negative: Lethargic Eyes Bilateral: positive: Normal inspection, PERRL, No lid inflammation, Conjunctivae nml ENT: positive: Pharynx nml, No signs of dehydration. negative: Purulent nasal drainage, Pharyngeal erythema, Oral lesions Neck: positive: Thyroid nml, No JVD, Trachea midline. negative: Thyromegaly, Stiff neck, Swelling/bruising, Tracheal deviation Respiratory: positive: Chest non-tender, No respiratory distress, Breath sounds nml. negative: Wheezes, Rales, Rhonchi Cardiovascular: positive: Regular rate & rhythm, No murmur, No gallop. negative: Irregularly irregular, Extrasystoles, Tachycardia, Bradycardia, JVD present, Systolic murmur, Diastolic murmur Peripheral Pulses: positive: 2+ Abdomen: positive: Non-tender, No organomegaly, Nml bowel sounds, No distention. negative: Tenderness, Guarding, Rebound Back: positive: Nml inspection. negative: CVA tenderness (R), CVA tenderness ( L) Skin: positive: Color nml, No rash, Warm, Dry. negative: Cyanosis, Diaphoresis, Pallor Extremities: positive: Non-tender. negative: Calf tenderness, Star's sign/cords Neurologic/Psychiatric: negative: Weakness, Sensory loss, Facial droop, Slurred/abnml speech, Depressed mood/affect - LABS Result Diagrams: 03/07/19 07:06 03/07/19 07:06 - SEPSIS Current Stage of Sepsis: Ruled out - FOLLOW UP Follow Up: you may followup your PCP in one week, followup Dr. Ocasio in 4-6 weeks. Should your symptoms return or worsen, you may present ER, call 911 or your PCP for help. await for biopsy result, no blood thinner, continue PPI -30 min before a meal, avoid non-steroid anti-inflammatory drugs, sucrafate tid. - TIME SPENT Time Spent in Discharge (Minutes): 60"
--- NOTE | 2019-03-18 13:54 | CONSULTATION NOTE ---
Referring Provider Name of Referring Provider:: Dr. Stock Consult Date: 04/04/19 Chief Complaint - Chief Complaint Chief Complaint: Profound anemia History of Present Illness - Admitted From Admitted From:: Emergency Department - History Obtained From Records Reviewed: Chart notes History obtained from: Patient's spouse Exam Limitations: Mild dementia - History of Present Illness HPI Comment/Other: This is a 88-year-old male with a complicated past medical history to include Type 2 diabetes mellitus [id number], osteoarthritis, gout, coronary artery disease with quadruple bypass, hyperlipidemia, JOSELYN on CPAP, Multifacorial anemia, Spinal stenosis at the level of C-spine and L-spine w/ no bony mets seen on on recent CT of head, soft tissue, CT chest in 01/17/19, CKD stage III, CLL diagnosed in 2007 status post Rituxan tx with complete response since 04/26, 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 Borjas. Patient currently sees Dr. Peter at [facility], Radiation oncologist at [facility]. He was admitted to the hospitalist service through the emergency room and has received a blood transfusion. He denies any pain currently.I have been consulted for consideration of endoscopy. History - Past Medical History Cardiovascular: reports: [place] Respiratory: reports: None Neuro: reports: Dementia Endocrine/Autoimmune: reports: Type 2 diabetes GI: reports: Other Musculoskeletal: reports: Osteoarthritis, Gout Other Past Medical History: swallowing difficulties - requires nectar thickened liquids - Past Surgical History Ortho: reports: Other (Left hip ORIF) Cardiovascular: reports: CABG - Family & Social History Living Situation: With spouse/s.o. - POLST Patient has POLST: Yes Meds/Allgy - Home Medications Home Medications: Ambulatory Orders Medication Instructions Recorded Confirmed Allopurinol 300 mg PO DAILY 03/02/14 03/06/19 Ascorbate Calcium [Vitamin C] 500 mg PO DAILY 03/02/14 03/06/19 Atorvastatin Calcium [Lipitor] 40 mg PO DAILY 03/02/14 03/06/19 Cyanocobalamin (Vitamin B-12) 500 mcg PO DAILY 03/02/14 03/06/19 [Vitamin B-12] Multivitamin [Multivitamins] 1 each PO DAILY 03/02/14 03/06/19 glipiZIDE [Glucotrol] 2.5 mg PO DAILY 03/02/14 03/06/19 raNITIdine [Zantac] 150 mg PO BID 03/02/14 03/06/19 Escitalopram [Lexapro] 10 mg PO DAILY 02/28/16 03/06/19 Cholecalciferol (Vitamin D3) 2,000 unit PO DAILY 05/21/17 03/06/19 [Vitamin D3] Ferrous Sulfate 325 mg PO DAILY #15 tablet 03/07/19 Omeprazole 40 mg PO BID #30 capsule. 03/07/19 Sucralfate 1 gm PO TID #45 tablet 03/07/19 - Allergies Allergies/Adverse Reactions: Allergies Allergy/AdvReac Type Severity Reaction Status Date / Time amoxicillin [From Augmentin] Allergy Hallucinati Verified 03/05/19 10:06 ons azithromycin Allergy Hives Verified 03/05/19 10:06 clavulanic acid Allergy Hallucinati Verified 03/05/19 10:06 [From Augmentin] ons gentamicin Allergy Rash Verified 03/05/19 10:06 morphine Allergy Hallucinati Verified 03/05/19 10:06 ons prednisone Allergy Hallucinati Verified 03/05/19 10:06 ons narcotics AdvReac Hallucinati Uncoded 03/05/19 10:06 ons Review of Systems - Other Findings Other Findings: Unable to obtain an accurate review of systems due to the patient's mental status. Exam - Vital Signs Reviewed Vital Signs: Yes - Physical Exam General Appearance: positive: No acute distress, Lethargic Eyes Bilateral: positive: Normal inspection, PERRL, EOMI Neck: positive: No JVD, Trachea midline Respiratory: positive: Chest non-tender, No respiratory distress, Breath sounds nml Cardiovascular: positive: Regular rate & rhythm, No murmur, No gallop Peripheral Pulses: positive: 0 Abdomen: positive: Non-tender, Nml bowel sounds. negative: Guarding, Rebound, Mass Back: positive: Nml inspection. negative: CVA tenderness (R), CVA tenderness (L) Skin: positive: No rash, Warm, Dry, Pallor, Other Extremities: positive: Non-tender, Nml appearance Neurologic/Psychiatric: positive: Mood/affect nml, Disoriented to time, Weakness Conclusion/Plan - Diagnosis Diagnosis: Anemia likely secondary to upper GI hemorrhage. I have discussed the risks and benefits of esophagogastroduodenoscopy with the patient and his . They both agreed to the procedure.Will complete this this afternoon. - Lab Results Lab results reviewed: Yes Fish Bones: 03/07/19 07:06 03/07/19 07:06
== END 2019-03-07 16:15 | disposition home or self-care (01) | DRG 811 ==
LOC: EDUNIT# → ED 19:22 → MS3 22:41
PROVIDERS: ADMIT Family Medicine; ATTEND Nurse Practitioner Gerontology
PROC: 30233N1 Transfusion of Nonautologous Red Blood Cells into Peripheral Vein, Percutaneous Approach (ICD-10-PCS; 2019-03-06)
PROC: 0DB68ZX Excision of Stomach, Via Natural or Artificial Opening Endoscopic, Diagnostic (ICD-10-PCS; 2019-03-07)
PROC: 0DB28ZX Excision of Middle Esophagus, Via Natural or Artificial Opening Endoscopic, Diagnostic (ICD-10-PCS; 2019-03-07)
PROC: 0DB38ZX Excision of Lower Esophagus, Via Natural or Artificial Opening Endoscopic, Diagnostic (ICD-10-PCS; principal; 2019-03-07 11:45)
DX: K92.1 Melena (principal); D64.9 Anemia, unspecified; E86.0 Dehydration; R42 Dizziness and giddiness; R55 Syncope and collapse; D62 Acute posthemorrhagic anemia; I25.810 Atherosclerosis of coronary artery bypass graft(s) without angina pectoris; C76.0 Malignant neoplasm of head, face and neck; K22.11 Ulcer of esophagus with bleeding; K29.81 Duodenitis with bleeding; K25.4 Chronic or unspecified gastric ulcer with hemorrhage; M48.02 Spinal stenosis, cervical region; M54.12 Radiculopathy, cervical region; M48.061 Spinal stenosis, lumbar region without neurogenic claudication; M54.16 Radiculopathy, lumbar region; D50.9 Iron deficiency anemia, unspecified; E11.22 Type 2 diabetes mellitus with diabetic chronic kidney disease; N18.3 Chronic kidney disease, stage 3 (moderate); D63.1 Anemia in chronic kidney disease; C4A.39 Merkel cell carcinoma of other parts of face; C7B.1 Secondary Merkel cell carcinoma; E78.5 Hyperlipidemia, unspecified; M10.9 Gout, unspecified; I25.10 Atherosclerotic heart disease of native coronary artery without angina pectoris; R60.0 Localized edema; F03.90 Unspecified dementia, unspecified severity, without behavioral disturbance, psychotic disturbance, mood disturbance, and anxiety; R13.10 Dysphagia, unspecified; G47.30 Sleep apnea, unspecified; I25.2 Old myocardial infarction; Z51.5 Encounter for palliative care; Z66 Do not resuscitate; Z96.642 Presence of left artificial hip joint; Z95.1 Presence of aortocoronary bypass graft; Z85.6 Personal history of leukemia; Z92.21 Personal history of antineoplastic chemotherapy; Z92.3 Personal history of irradiation; Z91.81 History of falling; Z79.899 Other long term (current) drug therapy; Z79.84 Long term (current) use of oral hypoglycemic drugs; Z79.82 Long term (current) use of aspirin; Z85.820 Personal history of malignant melanoma of skin
CPT/HCPCS: 36415; 70450; 80053; 81003; 82607; 82746; 83036; 83540; 83605; 83690; 83735; 83880; 84443; 84466; 84484; 85014; 85018; 85025; 85610; 85730; 86850; 86900; 86901; 86920; 93005; 93306; 96360; 96374; 99222; 99283; 99284; A9270; P9016; 81001; 87086

== ENCOUNTER 2019-03-18 08:00 | Outpatient (CLI) | payer MEDICARE, BC ==
[2019-03-18 18:51] LABS: BASOPHILS % (AUTO) 0.6 %; EOSINOPHILS # (AUTO) 0.5 10^3/uL (0.0-0.7); EOSINOPHILS % (AUTO) 8.3 %; HGB - HEMOGLOBIN 9.1 g/dL (14.0-18.0); LYMPHOCYTES # (AUTO) 1.5 10^3/uL (1.5-3.5); LYMPHOCYTES % (AUTO) 28.3 %; MEAN CORPUSCULAR HEMOGLOBIN 32.6 pg (27.0-31.0); MEAN CORPUSCULAR HGB CONC 30.3 g/dL (32.0-36.0); MEAN CORPUSCULAR VOLUME 107.5 fL (80.0-94.0); MEAN PLATELET VOLUME 10.1 fL (7.4-11.4); MONOCYTES # (AUTO) 0.6 10^3/uL (0.0-1.0); MONOCYTES % (AUTO) 11.4 %; NEUTROPHILS # (AUTO) 2.8 10^3/uL (1.5-6.6); NEUTROPHILS % (AUTO) 51.2 %; PLT - PLATELET COUNT 330 10^3/uL (130-450); RED BLOOD COUNT 2.79 10^6/uL (4.70-6.10); RED CELL DISTRIBUTION WIDTH 20.3 % (12.0-15.0); WHITE BLOOD COUNT 5.4 x10^3/uL (4.8-10.8)
[2019-03-18 19:03] LABS: ALBUMIN 2.9 g/dL (3.2-5.5); ALBUMIN/GLOBULIN RATIO 0.8 (1.0-2.2); BILIRUBIN,TOTAL 0.4 mg/dL (0.2-1.0); CALCIUM 8.6 mg/dL (8.5-10.3); CREATININE 1.5 mg/dL (0.6-1.2); TOTAL PROTEIN 6.5 g/dL (6.7-8.2)
[2019-03-18 21:17] LABS: PLATELET ESTIMATE, MANUAL NORMAL (130-450,000) (NORMAL); PLATELET MORPHOLOGY NORMAL APPEARANCE (NORMAL); RBC MORPHOLOGY (MULTIPLE) 2+ ANISOCYTOSIS (NORMAL)
== END 2019-03-18 23:59 | disposition home or self-care (01) ==
LOC: LAB.WCP 08:00
PROVIDERS: ATTEND Family Medicine
DX: K92.2 Gastrointestinal hemorrhage, unspecified (principal)
CPT/HCPCS: 36415; 80053; 85025

== ENCOUNTER 2019-06-04 16:45 | Outpatient (CLI) | payer MEDICARE, BC | END 2019-06-04 16:46 | disposition hospice, inpatient (51) | LOC: EMS 16:45 | PROVIDERS: ATTEND Surgery | DX: F03.90 Unspecified dementia, unspecified severity, without behavioral disturbance, psychotic disturbance, mood disturbance, and anxiety (principal); C4A.9 Merkel cell carcinoma, unspecified; Z74.01 Bed confinement status | CPT/HCPCS: A0425; A0428 ==

== ENCOUNTER 2019-06-09 20:08 | Outpatient (CLI) | payer MEDICARE, BC | END 2019-06-09 20:09 | disposition hospice, home (50) | LOC: EMS 20:08 | PROVIDERS: ATTEND Surgery | DX: R41.0 Disorientation, unspecified (principal); Z74.01 Bed confinement status | CPT/HCPCS: A0425; A0428 ==